=== PATIENT | female | born 1940 | race Caucasian/White ===

== ENCOUNTER 2019-02-03 23:23 | Inpatient (IN) ==
[2019-02-04] MEDS ORDERED: NS 1,000 ML IV ONE (02:19)
[2019-02-04] MEDS ORDERED: ZOFRAN IV ONE (02:19)
[2019-02-04] MEDS ORDERED: MORPHINE IV ONE (02:19)
[2019-02-04 02:50] LABS: BASO# 0.02 X1000 (0.0-0.2); BASO% 0.2 % (0.0-0.8); EOS# 0.17 X1000 (0.0-0.7); EOS% 1.9 % (0.0-10.0); HEMATOCRIT 41.1 % (37.0-47.0); HEMOGLOBIN 13.4 g/dL (12.0-16.0); IMM GRAN# 0.02 X1000 (0.0-0.04); IMM GRAN% 0.2 % (0.0-0.5); LYMPH# 2.04 X1000 (1.2-3.4); LYMPH% 22.3 % (20.5-51.1); MCH 29.2 PG (27-31); MCHC 32.6 g/dL (33-37); MCV 89.5 FL (81-99); MONO# 0.82 X1000 (0.11-0.59); NEUT# 6.09 X1000 (1.4-6.5); NEUT% 66.4 % (42.2-75.2); PLT 224 X1000 (130-400); RBC 4.59 XMIL (4.2-5.4); RDW 14.7 % (11.5-14.5); WBC 9.16 X1000 (4.8-10.8)
[2019-02-04 03:16] LABS: URINE SOURCE CLEAN CATCH
[2019-02-04 03:18] LABS: BILIRUBIN URINE NEGATIVE (NEGATIVE); BLOOD URINE NEGATIVE (NEGATIVE); COLOR YELLOW; GLUCOSE URINE NEGATIVE (NEGATIVE); KETONE URINE 60 mg/dL (NEGATIVE); LEUKOCYTES URINE SMALL (NEGATIVE); NITRITE URINE NEGATIVE (NEGATIVE); PROTEIN URINE TRACE mg/dL (NEGATIVE); SP GRAVITY URINE 1.018; TURBIDITY URINE CLEAR (CLEAR); UR EPITHELIAL CELLS <10 /HPF (<10); URINE BACTERIA NEGATIVE /HPF; URINE RBC <10 /HPF (<10); UROBILINOGEN URINE NORMAL (NORMAL)
[2019-02-04 03:23] LABS: AGAP 13; ALB/GLOB RATIO 1.2; ALBUMIN 4.1 g/dL (3.5-5.0); ALKALINE PHOSPHATASE 129 U/L (32-104); BUN 9 mg/dL (8-22); CHLORIDE 106 mmol/L (98-107); COSMO 285; CREATININE 0.9 mg/dL (0.5-0.9); ESTIMATED GFR > 60; GLUCOSE 94 mg/dL (70-104); GOT 31 U/L (10-30); GPT 16 U/L (10-36); LIPASE 43 U/L (13-60); POTASSIUM 3.9 mmol/L (3.5-5.1); SODIUM 144 mmol/L (136-145); TCO2 25 mmol/L (25-35); TOTAL BILIRUBIN 0.62 mg/dL (0.20-1.00); TOTAL PROTEIN 7.4 g/dL (6.3-8.3)
--- NOTE | 2019-02-04 04:59 | PROVIDER DOCUMENTATION ---
HPI-General Adult - General Chief Complaint: Constipation Stated Complaint: RIGHT SIDE PAIN/COMPACTED Time Seen by Provider: 02/04/19 02:15 Source: patient, family Allergies/Adverse Reactions: Patient Allergies Allergy/AdvReac Type Severity Reaction Status Date / Time codeine [Codeine] Allergy Unknown VOMITING Verified 01/16/19 11:52 Home Medications: Home Medication List Medication Instructions Recorded Confirmed Last Taken Type Lansoprazole 30 mg PO DAILY 06/01/13 12/17/18 12/15/18 History Levothyroxine [Synthroid] 100 microgm PO DAILY 06/01/13 12/17/18 12/16/18 21:00 History Loratadine [Claritin] 10 mg PO DAILY 07/07/16 12/17/18 12/17/18 07:00 History Cholecalciferol (Vitamin D3) 1,000 unit PO DAILY 12/16/18 12/17/18 12/15/18 History [Vitamin D3] Hydrocodone/Acetaminophen [[place] 1 ea PO PRN PRN 12/16/18 12/17/18 12/15/18 History 7.5-325 Tablet] Losartan Potassium 50 mg PO DAILY 12/16/18 12/17/18 12/15/18 History Magnesium 250 mg PO DAILY 12/16/18 12/17/18 12/15/18 History Rosuvastatin Calcium 10 mg PO DAILY 12/16/18 12/17/18 12/17/18 07:00 History Oxycodone I.r. [Oxy Ir] 5 mg PO Q4-6H PRN PRN #40 cap 12/17/18 Unknown Rx - History of Present Illness -Gen Adult Nature of Presenting Problems: 78 y/o F presents to the ED complaining of abdominal pain and a concern about constipation. States she has been having some diffuse abdominal cramping and distention intermittently for several weeks and was scheduled for a colonoscopy this AM with Dr. Pina. States she was doing her bowel prep last night and has this continued she began to have increased abdominal pain and felt that perhaps the prep was not working as she was only passing watery stool. no nausea no feve r. Review of Systems - Adult - REVIEW OF SYSTEMS - ADULT Constitutional: reports: no symptoms reported Eyes: reports: no symptoms reported Ears, Nose, Mouth & Throat: reports: no symptoms reported Cardiovascular: reports: no symptoms reported Respiratory: reports: no symptoms reported Gastrointestinal: reports: abdominal pain Genitourinary: reports: no symptoms reported Musculoskeletal: reports: no symptoms reported Integumentary: reports: no symptoms reported Neurological: reports: no symptoms reported Psychiatric: reports: no symptoms reported Endocrine: reports: no symptoms reported Hematologic/Lymphatic: reports: no symptoms reported Allergic/Immunologic: reports: no symptoms reported All Other Systems: Reviewed and Negative Past History - Adult - PAST MEDICAL HISTORY-ADULT Review of Records: reports: Old Records Reviewed, Nursing Assessment Review, Medications Reviewed, Social history reviewed & non-contributory. Major Childhood Illnesses: reports: denies history Cardiovascular: reports: denies history Respiratory: reports: COPD Gastrointestinal: reports: denies history Obstetrical/Gynecological: reports: denies history Genitourinary: reports: denies history Musculoskeletal: reports: denies history Neurological: reports: denies history Psychiatric: reports: denies history Endocrine/Immune: reports: thyroid disorder Other Conditions: reports: denies history - PRIOR SURGERIES/PROCEDURES Surgical/Procedure History: reports: reviewed, not pertinent - IMMUNIZATION STATUS Childhood Immunizations: See Nurse Assessment Flu Vaccine: See Nurse Assessment - FAMILY HISTORY Family History: reviewed, not pertinent Physical Exam-General - PHYSICAL EXAM-ADULT Initial Vital Signs Reviewed: Yes - CONSTITUTIONAL General Appearance: appears well, alert, no apparent distress - EYES Eyes: PERRL/EOMI - HEAD, EARS, NOSE, MOUTH & THROAT HENMT: normocephalic/atraumatic, moist mucous membranes, normal ENT inspection - NECK Neck: non-tender, full range of motion, supple - RESPIRATORY Respiratory: chest non-tender, lungs clear, normal breath sounds - CARDIOVASCULAR Cardiovascular: normal peripheral pulses, regular rate, rhythm, no edema - GASTROINTESTINAL (ABDOMEN) Abdominal Exam: soft, tenderness (moderate LUQ and pertiumbilical ttp) - MUSCULOSKELETAL Back Exam: normal inspection, no CVA tenderness, no vertebral tenderness Extremity: normal range of motion, non-tender - SKIN Integumentary: normal color, normal turgor, warm/dry - NEUROLOGIC Neurologic: grossly normal, no motor/sensory deficits - PSYCHIATRIC Psych/Mental Status: normal mood/affect, normal thought content, normal thought process, oriented x 3 Progress - PLAN OF CARE/RESULTS Progress/Plan/Lab Results: Vital Signs - 8 hr 02/03/19 23:28 02/04/19 03:07 Temperature 98.0 F 97.8 F Pulse Rate 91 H 95 H Respiratory Rate 18 16 Blood Pressure 160/87 160/70 O2 Sat by Pulse Oximetry 98 97 Laboratory Results - last 24 hr 02/04/19 02/04/19 02/04/19 02: 02:29 03:08 WBC 9.16 RBC 4.59 Hgb 13.4 Hct 41.1 MCV 89.5 MCH 29.2 MCHC 32.6 L RDW Std Deviation 14.7 H Plt Count 224 MPV 12.0 H Immature Gran % (Auto) 0.2 Neut % (Auto) 66.4 Lymph % (Auto) 22.3 [place] % (Auto) 9.0 Eos % (Auto) 1.9 Baso % (Auto) 0.2 Immature Gran # (Auto) 0.02 Neut # (Auto) 6.09 Lymph # (Auto) 2.04 [place] # (Auto) 0.82 H Eos # (Auto) 0.17 Baso # (Auto) 0.02 Sodium 144 Potassium 3.9 Chloride 106 Carbon Dioxide 25 Anion Gap 13 BUN 9 Creatinine 0.9 Estimated GFR/1.73 m2 > 60 BUN/Creatinine Ratio 10 Glucose 94 Calculated Osmolality 285 Calcium 10.0 Total Bilirubin 0.62 AST 31 H ALT 16 Alkaline Phosphatase 129 H Total Protein 7.4 Albumin 4.1 Globulin 3.3 Albumin/Globulin Ratio 1.2 Lipase 43 Urine Source CLEAN CATCH Urine Color YELLOW Urine Turbidity CLEAR Urine pH 6.0 Ur Specific [place] 1.018 Urine Protein TRACE A Ur Glucose (Stick) NEGATIVE Ur Ketones (Stick) 60 A Urine Blood NEGATIVE Urine Nitrite NEGATIVE Urine Bilirubin NEGATIVE Urobilinogen Dipstick NORMAL Urine Leukocytes SMALL A Urine WBC (Auto) 10-20 A Urine RBC (Auto) <10 U Epithel Cells (Auto) <10 Urine Bacteria (Auto) NEGATIVE Orders Category Date Time Status IV Insertion ORDERED Care 02/04/19 02:[address] ABD/PELVIS W/IV CONT ONLY [CT] Stat Exams 02/04/19 02:20 Taken CBC WITH DIFF [HEME] Stat Lab 02/04/19 02:29 Completed COMPREHENSIVE METABOLIC PANEL [CHEM] Stat Lab 02/04/19 02:29 Completed LIPASE [CHEM] Stat Lab 02/04/19 02:29 Completed URINALYSIS W/POSS RFLX CULT [URINALYSIS] Stat Lab 02/04/19 03:08 Completed URINE CULTURE [RM] Routine Lab 02/04/19 03:27 Received 0.9% Sodium Chloride Inj [Ns] 1,000 ml Med 02/04/19 02:19 Discontinued IV 999 mls/hr Morphine Med 02/04/19 02:19 Discontinued 4 mg IV NOW ONE Ondansetron [Zofran] Med 02/04/19 02:19 Discontinued 4 mg IV NOW ONE abdominal pain will further evaluate for causes including but not limited to obstruction, colitis, gastitis, pancreatitis, appendicitis, uti Result Diagrams: 02/04/19 02:29 02/04/19 02:29 - REASSESSMENT Reassessment #1 Status: improving (pain improved CT consistent with acute appendicitis and PNA. Discussed case with Dr. Acosta, Surgeon training professional, who asks that pt be treate with zosyn and admitted to the hospitalist and he will see pt in the ED. Discussed case with Dr. Cheung, hospitalist who will see and admit pt.) - CT/MRI 1 CT Study: Abdomen, Pelvis Impression: Abnormal (per radiologist read, acute appendicitis with large appendicolith, no perforation or abscess, small area of infiltrate in right lung base) Departure - Departure Date of Disposition Decision: 02/04/19 Time of Disposition Decision: 05:14 DIAGNOSIS: Appendicitis Qualifiers: Appendicitis type: acute appendicitis Acute appendicitis type: unspecified acute appendicitis type Qualified Code(s): K35.80 - Unspecified acute appendicitis Pneumonia Qualifiers: Pneumonia type: due to unspecified organism Laterality: right Lung location: lower lobe of lung Qualified Code(s): J18.1 - Lobar pneumonia, unspecified organism Disposition: ADMITTED INPATIENT 09 Certified Medical Emergency: Emergent Condition: Good Referrals and Follow-Ups: Lai Mishra MD [Primary Care Provider] - - Critical Care Note This patient required my direct & personal management of CC.: No Attestation - Physician/ DORA Attestation Patient care was provided by Advanced Practice Provider:: No The physician spent face to face time with patient:: Yes Advanced Practice Provider documentation review:: Supervising physician onsite and consulted in the evaluation and care of this patient. The physician did have a face to face encounter with the patient.
[2019-02-04] MEDS ORDERED: ZOSYN 4.5 GM in NS 100 ML IV ONE (05:08)
[2019-02-04] MEDS ORDERED: ZOFRAN IV PRN (05:42)
[2019-02-04] MEDS: ZITHROMAX 500 MG/NS 500 MG/250 ML IVPB IV SCH ×3 (05:45→08:13)
[2019-02-04] MEDS: NS 1,000 ML IV SCH ×2 (05:45→08:01)
--- NOTE | 2019-02-04 06:55 | HISTORY AND PHYSICAL ---
CHIEF COMPLAINT: Abdominal pain. HISTORY OF PRESENT ILLNESS: 78-year-old female who had seen Dr. Gillette outpatient. He thought she was constipated, was giving her a prep and was going to do a colonoscopy I believe tomorrow. As she started drinking the prep, she had increasing abdominal pain and came into the emergency room. A CT scan was obtained which showed acute appendicitis with a large appendicolith, no perforation or abscess and a small area of infiltrate in the right lung base. She will be admitted for further evaluation and treatment. PAST MEDICAL HISTORY: 1. Osteoporosis. 2. Hypothyroidism. 3. Combined variable immunoglobulin deficiency, takes IVIG every 6 weeks. 4. Hypertension. 5. Hyperlipidemia. PREVIOUS SURGICAL HISTORY: Right rotator cuff surgery on December 17. SOCIAL HISTORY: Lives with . No tobacco, alcohol or illicit drugs. FAMILY HISTORY: Father from complications of lung cancer. Mother had Alzheimer's dementia. HOME MEDICATIONS: A list of home medications has not been reconciled. I know that she takes Synthroid, I am unaware of what dose. Order is placed for nursing reconciliation of medications. These can be restarted when appropriate. ALLERGIES: Codeine. REVIEW OF SYSTEMS: Fourteen point review of systems conducted with the patient. She has abdominal pain, nausea but no vomiting. Denies any fever, chills, diarrhea, cough, shortness of breath. Other pertinent positives on admission are listed above in the HPI. All other systems reviewed and found to be negative. PHYSICAL EXAMINATION: VITAL SIGNS: Temp 97.8, pulse 95, respirations 16, blood pressure 160/70, oxygen saturation 97% on room air. GENERAL: Pleasant 78-year-old female sitting in a recliner in specialty care in the ER. She is alert and oriented x3. Answers all questions appropriately, is in no acute distress. HEENT: Head is atraumatic, normocephalic. Pupils are equal, round and react to light. Extraocular eye movement intact. Sclerae anicteric. Conjunctivae pink. Oral mucosa is moist. NECK: Supple. No JVD. No thyromegaly. Trachea is midline. No cervical lymphadenopathy. CARDIAC: S1, S2 appreciated. No murmurs, gallops, rubs. LUNGS: Clear to auscultation bilaterally. No rhonchi, wheezes, rales. Symmetric rise and fall of respirations. ABDOMEN: Soft mild area of distention just below the epigastric area, right lower quadrant area pain and rebound tenderness with guarding. Bowel sounds present all 4 quadrants, hyperactive. No pulsatile mass. EXTREMITIES: No cyanosis, clubbing or edema. 2+ pedal pulses. GENITOURINARY: No bladder distention. Patient voids otherwise. NEUROLOGICAL: Alert and oriented x3. No focal motor deficits. Otherwise nonfocal examination. DIAGNOSTIC DATA: See CT report in HPI. LABORATORY DATA: CBC and CMP are within normal limits. Urine unremarkable. ASSESSMENT AND PLAN: 1. Acute appendicitis. Patient was placed on Zosyn. Dr Nam will consult. The patient will be NPO. 2. Questionable right lower lobe pneumonia. This could be an area of atelectasis related to shallow breathing from her abdominal pain. However, we will treat with Zithromax and Zosyn. Blood cultures will be obtained. 3. Hypertension. We will continue home medications once reconciled. 4. Hypothyroidism. Continue Synthroid. Check TSH. 5. Hyperlipidemia. Continue statin once reconciled. Further recommendations per patient's clinical course. Dictated by LIANG Ortega for Troy Cheung MD I have performed a face to face diagnostic evaluation. Labs/ Xrays reviewed. Exam- Chest- clear, CV- soft, Abd- RLQ tenderness. A/P- Acute appendicitis; Pneumonia- Admit, IV ABX, surgery consult. Dr. Cheung cc: LIANG Ortega MD Micah A. Howard, MD Manish Arora, MD [facility]ERNON HOSPITALChristin
--- NOTE | 2019-02-04 07:37 | GENERAL SURGERY CONSULTATION ---
DATE: 02/04/2019 REASON FOR CONSULTATION: Consult concerning appendicitis. REQUESTING PHYSICIAN: Emergency department. HISTORY OF PRESENT ILLNESS: A 78-year-old female who was undergoing a bowel prep for colonoscopy, presenting with abdominal pain, mostly in the right lower quadrant. She has never had pain like this before. It was increasing in intensity. She came to the emergency department and had a CT scan that showed possibility of appendicitis. She is still having some of the abdominal discomfort. I was asked to weigh an opinion. PAST MEDICAL HISTORY: Includes history of hypertension, history of thyroid disease, history of hiatal hernia. PAST SURGICAL HISTORY: None. SOCIAL HISTORY: Denies smoking. ALLERGIES: Codeine. HOME MEDICATIONS: Include Synthroid, Claritin, vitamin D, [place], magnesium, a statin. FAMILY HISTORY: Reviewed with the patient and noncontributory. REVIEW OF SYSTEMS: A full 10-point review of systems obtained and negative except as specified in the HPI. PHYSICAL EXAMINATION: Vital Signs: Patient is currently afebrile. Vital signs stable. General: No acute distress, but looks uncomfortable. A 78-year-old female, looks stated age. HEENT: Normocephalic, atraumatic. Pupils equal, round, reactive to light. Mucous membranes moist. Oropharynx benign. Neck: Supple. Trachea midline. Cardiovascular: Regular rate and rhythm. Lungs: Grossly clear. Abdomen: Soft, tender to palpation in the right lower quadrant. Extremities: Moves all extremities. Neurologic: Grossly intact. Skin: No signs of jaundice. Vascular: All extremities perfused. LABORATORY DATA: White blood cell count is normal. Hematocrit 41, platelet count 244,000. Remainder of labs reviewed. CT scan independently reviewed and radiology report reviewed. It looks like she has appendicolith, but no signs of perforation, and possible infiltrate in the right lung base. ASSESSMENT AND PLAN: A 78-year-old with possible appendicitis. 1. Possible appendicitis: At this time, we will admit her to the hospitalist service. We will keep her nothing by mouth. We will put her on intravenous antibiotics. We will plan on surgical intervention today. The risks, benefits, and alternatives were discussed. Risks including, but not limited to, bleeding, infection, risk of anesthesia, risk of injury to other organs, risk of staple line breakdown discussed. Again, we will schedule for today. 2. Multiple medical comorbidities to be managed by the hospitalist. cc: Rudy Acosta MD
--- NOTE | 2019-02-04 08:08 | Diag Imaging Result Doc PS360 ---
EXAM: CT ABD/PELVIS W/IV CONT ONLY 02/04/2019 HISTORY: colitis TECHNIQUE: This exam was performed using automated exposure control, adjustment of mA or kV according to patient size, and/or use of iterative reconstruction technique. COMMENT: The current study is compared with the previous examination of 01/22/2012. There is patchy groundglass and tree-in-bud opacity present in the right lower lobe. There may be some small cavitation present laterally. These findings were not present at the time the previous study. There is some fibrosis present in the medial portion of the lingula and right middle lobe which were present at the time the previous study. Some platelike atelectasis is present in both lower lobes. There is a large hiatal hernia. There are atherosclerotic calcifications in the abdominal aorta. The mesenteric and renal arteries are patent and there is no evidence of aneurysm. There are granulomata in the spleen. The liver is hypodense suggesting fatty change. The adrenal glands are not enlarged. The pancreas is stable in appearance. There is a small calcification in the pancreatic tail which was present at the time the previous study and may be indicative of chronic pancreatitis. The adrenal glands are stable in appearance. There is fluid in the colon. There is no evidence of mucosal thickening. The small bowel is not distended. There is no evidence of significant adenopathy. Pelvis: There is a large appendicolith. The appendix is distended and there is edema in the periappendiceal fat. There is no discrete abscess. These findings were not present at the time the previous study. There is diverticulosis in the sigmoid colon without evidence of diverticulitis. There is fluid throughout the colon including the rectum. No pelvic masses are present. There is no evidence of free fluid. There are changes in the right femoral head consistent with ischemic necrosis. This was also present at the time the previous study. There are degenerative changes in the lumbar spine. IMPRESSION: 1. Nonspecific opacities in the right lower lobe which may be related to aspiration pneumonia given the large hiatal hernia. 2. Acute appendicitis with appendicolith. 3. Hepatic steatosis. Chronic pancreatitis changes. 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 Electronically signed by Francesco Cortez 02/04/2019 8:05 AM
[2019-02-04] MEDS ORDERED: ZOSYN 3.375 GM in NS 50 ML IV SCH (11:45)
[2019-02-04] MEDS ORDERED: ROBINUL ONE (11:51)
[2019-02-04] MEDS ORDERED: XYLOCAINE-MPF 2% ONE ×2 (11:51→15:11)
[2019-02-04] MEDS ORDERED: FENTANYL ONE (11:53)
[2019-02-04] MEDS ORDERED: ZEMURON ONE (11:53)
[2019-02-04] MEDS ORDERED: QUELICIN (DOSE) ONE (11:53)
[2019-02-04] MEDS ORDERED: DIPRIVAN 1% ONE (11:53)
[2019-02-04] MEDS ORDERED: SODIUM CHLORIDE 0.9% 10 ML ONE (13:15)
[2019-02-04] MEDS ORDERED: ZOFRAN ONE (14:33)
[2019-02-04] MEDS ORDERED: NEOSTIGMINE ONE (14:35)
[2019-02-04] MEDS ORDERED: LR 1,000 ML ONE (14:36)
[2019-02-04] MEDS ORDERED: MARCAINE 0.25% PF/EPI 1:200,000 ONE (14:36)
[2019-02-04] MEDS ORDERED: NS 1,000 ML ONE (15:13)
[2019-02-04] MEDS: DILAUDID ONE ×3 (15:56→16:06)
[2019-02-04] MEDS ORDERED: ULTRAM PO PRN (16:21)
--- NOTE | 2019-02-04 17:44 | OPERATIVE NOTE ---
PROCEDURE DATE: 02/04/2019 PREOPERATIVE DIAGNOSIS: Appendicitis. POSTOPERATIVE DIAGNOSIS: Appendicitis. PROCEDURE: Laparoscopic appendectomy. SURGEON: Rudy Acosta MD. INSIDE SALES PROFESSIONAL: None. ANESTHESIA: General endotracheal. INTRAOPERATIVE FINDINGS: As dictated. COMPLICATIONS: None at time of dictation. ESTIMATED BLOOD LOSS: 5 mL. SPECIMENS REMOVED: Appendix. BRIEF HISTORY: 78-year-old female presenting with right lower quadrant pain. She had a CT scan that showed appendicitis. It was felt that she would benefit from appendectomy. The risks, benefits, and alternatives were discussed. All questions answered. PROCEDURE: After informed consent was obtained, the patient brought to the operative theatre, transferred to the operating table in supine position. General endotracheal anesthesia was then performed without complication. A formal time-out was then performed confirming patient, date, procedure. All in agreement. At that time attention was given to the abdomen. An infraumbilical incision was made through which using Optiview technique we inserted a 12 mm trocar connected to insufflation. Pneumoperitoneum was achieved. Under direct visualization we placed 2 more trocars, 1 in the right upper quadrant, 1 in the left lower quadrant. Using these, the appendix was identified, it was elevated. There was some adhesions stuck to it from inflammation but we were able to dissect it off. We dissected off the appendix from the surrounding tissue, elevated and made a window in the base of the mesoappendix fired a stapler across the base of the appendix with good results. We then fired a stapler across the mesoappendix with good results. We placed the appendix in the Endo catch and brought out through the infraumbilical incision. We then closed the infraumbilical incision after removing all trocars and disconnecting insufflation. It should be noted that the remainder of the abdomen appeared without pathology. There was no drainage of succus or stool noted at the staple lines. No bleeding. We closed the infraumbilical incision with 0 Vicryl [id number] stitch. We then closed all skin incisions with 4-0 Monocryl. The patient's fascia and skin were very thin. Sterile dressings were applied. Patient tolerated procedure well and was transferred back to recovery room. We need to watch her overnight given her age. cc: Rudy Acosta MD
[2019-02-05] MEDS: NS 1,000 ML IV SCH ×3 (02:01→16:01)
[2019-02-05] MEDS: MORPHINE IV PRN ×2 (02:24→15:58)
[2019-02-05] MEDS: SYNTHROID PO SCH (06:40)
[2019-02-05] MEDS: PROTONIX PO SCH (06:41)
[2019-02-05 07:56] LABS: BASO% 0.2 % (0.0-0.8); EOS% 1.3 % (0.0-10.0); HEMATOCRIT 34.4 % (37.0-47.0); LYMPH% 19.6 % (20.5-51.1); MCH 29.1 PG (27-31); MONO% 8.9 % (1.7-9.3); MPV 12.2 FL (7.4-10.4); PLT 175 X1000 (130-400); RBC 3.78 XMIL (4.2-5.4); RDW 14.7 % (11.5-14.5); WBC 9.19 X1000 (4.8-10.8)
[2019-02-05 07:57] LABS: BASO# 0.02 X1000 (0.0-0.2); EOS# 0.12 X1000 (0.0-0.7); MONO# 0.82 X1000 (0.11-0.59); NEUT# 6.43 X1000 (1.4-6.5)
[2019-02-05 07:59] LABS: AGAP 15; BUN 8 mg/dL (8-22); CALCIUM 9.3 mg/dL (8.8-10.2); CHLORIDE 108 mmol/L (98-107); COSMO 278; CREATININE 0.8 mg/dL (0.5-0.9); ESTIMATED GFR > 60; GLUCOSE 69 mg/dL (70-104); POTASSIUM 3.8 mmol/L (3.5-5.1); SODIUM 141 mmol/L (136-145); TCO2 18 mmol/L (25-35)
[2019-02-05] MEDS: VITAMIN D PO SCH (09:30)
[2019-02-05] MEDS: COZAAR PO SCH (09:30)
[2019-02-05] MEDS: MAG-OX PO SCH (09:30)
[2019-02-05] MEDS: PERIDEX MT SCH ×2 (09:30→22:04)
[2019-02-05] MEDS: CRESTOR PO SCH (09:31)
[2019-02-05] MEDS: CLARITIN PO SCH (09:31)
--- NOTE | 2019-02-05 10:24 | GENERAL SURGERY PROGRESS NOTE ---
DATE: 02/05/2019 SUBJECTIVE: Patient seems to be doing okay. She does have some issues with dysphagia, but this has been longstanding. OBJECTIVE: Vital Signs: The patient is currently afebrile. Her vital signs stable. General: No acute distress. Cardiovascular: Regular rate and rhythm. Lungs: Grossly clear. Abdomen: Soft, appropriately tender. ASSESSMENT AND PLAN: A 78-year-old female status post laparoscopic appendectomy for appendicitis. 1. Laparoscopic appendectomy. At this time, surgically, she is doing okay. From a surgical point of view we could try to advance to a regular diet although she is having dysphagia. Please see below. 2. Dysphagia. At this time, this has been longstanding. Likely we will pursue this evaluation as an outpatient when she sees me back in a week. I think she probably needs an upper gastrointestinal series plus or minus the esophagogastroduodenoscopy. She does have a large hiatal hernia, which may be contributing to this. This may be somewhat obstructing to her. We will need to get upper gastrointestinal series first. 3. Multiple medical comorbidities currently being managed by the hospitalist. 4. From a surgical point of view, I think the patient is healing. I think she can likely be discharged home pending evaluation for pneumonia and outpatient treatment but I think we could do further workup as an outpatient. cc: Rudy Acosta MD
[2019-02-05] MEDS: AUGMENTIN PO SCH ×2 (11:58→22:04)
--- NOTE | 2019-02-05 12:10 | PROGRESS NOTE ---
DATE: 02/05/2019 SUBJECTIVE: This morning Ms. Brown refers to be feeling okay. Still has some issues with her swallowing, which according to her is chronic, but she does feel generally weak and apprehensive to go home. She does not feel strong enough that she would be able to be by herself. OBJECTIVE: Vital signs: Blood pressure is 134/61, pulse of 93, respirations 22, temperature 98.9 degrees. Patient was saturating 93% on room air. General: Ms. Brown is a 78-year-old female. She was in bed. She did not seem to be in any cardiopulmonary distress. Mucosa is pink and moist. Anicteric. Acyanotic. Neck: Supple. Chest: Good air entry bilaterally. No crepitations. No rhonchi. Cardiovascular: Regular rate and rhythm. Abdomen: Soft, minimally distended. There is a Band-Aid over the laparoscopic wounds. Bowel sounds are present, but slightly hypoactive. Extremities: No pedal edema. central nervous system: Patient is awake, alert, and oriented. LABORATORY DATA: Has been reviewed. WBC is 9.19, hemoglobin is 10.0, platelet count of 175,000. Chemistry is also reviewed. Bicarb is 18. Rest of chemistry is unremarkable. Operative report has also been reviewed. A laparoscopic appendectomy was done by Dr. Acosta. ASSESSMENT: 1. Abdominal pain on presentation secondary to acute appendicitis. The patient is status post laparoscopic appendectomy. Today is day 1 postop. She seems to be doing remarkably well. The patient has been evaluated by Surgery, has been started on a diet. 2. Right lower lobe pneumonia concerning for aspiration. The patient is on aspiration precautions and on antibiotics. 3. Hypertension controlled. 4. Hypothyroidism stable on levothyroxine. 5. History of large hiatal hernia noted. The patient will follow up on outpatient base with Surgery. PLAN: In general, Ms Brown seems to be fairly stable. She has been evaluated by Surgery today and from surgery standpoint they think she is okay for discharge. However, Ms. Bronw feels extremely apprehensive. She thinks she is too weak to go home since she will be home by herself and nobody else is their. is working. We will keep her overnight, continue with the IV antibiotics, get physical therapy to continue working with her, and hopefully get her home tomorrow. cc: Mark Crawford MD
[2019-02-05] MEDS: ZOFRAN IV PRN ×2 (15:58→22:08)
[2019-02-05] MEDS: CULTURELLE PO SCH (22:20)
[2019-02-06] MEDS: ZOFRAN IV PRN (03:13)
[2019-02-06] MEDS: SYNTHROID PO SCH (06:24)
[2019-02-06] MEDS: PROTONIX PO SCH (06:24)
[2019-02-06] MEDS: LEVAQUIN PO SCH (09:37)
[2019-02-06] MEDS: CULTURELLE PO SCH ×2 (09:37→23:37)
[2019-02-06] MEDS: MAG-OX PO SCH (09:38)
[2019-02-06] MEDS: VITAMIN D PO SCH (09:39)
[2019-02-06] MEDS: CRESTOR PO SCH (09:39)
[2019-02-06] MEDS: COZAAR PO SCH (09:40)
[2019-02-06] MEDS: CLARITIN PO SCH (09:40)
--- NOTE | 2019-02-06 13:16 | GENERAL SURGERY PROGRESS NOTE ---
DATE: 02/06/2019 SUBJECTIVE: Patient seems to be doing a little bit better, although she is weak and she has been put on antibiotics for her pneumonia. OBJECTIVE: Vital Signs: Patient is currently afebrile. Her vital signs have been stable. General: No acute distress. Cardiovascular: Regular rate and rhythm. Lungs: Grossly clear. Abdomen: Soft. Appropriately tender. ASSESSMENT AND PLAN: A 78-year-old female status post laparoscopic appendectomy. 1. Postoperative state. At this time, surgically, she is doing okay. Defer discharge to the hospitalist. 2. Dysphagia. At this time, would probably recommend workup as an outpatient. 3. Pneumonia to be managed by the hospitalist. cc: Rudy Acosta MD
[2019-02-06] MEDS: PERIDEX MT SCH ×2 (16:34→23:37)
--- NOTE | 2019-02-06 19:01 | PROGRESS NOTE ---
DATE: 02/06/2019 SUBJECTIVE: This morning Ms. Brown refers to be feeling slightly better, but she is not as strong as she would want to be. OBJECTIVE: Vital signs: Blood pressure is 151/65, pulse 94, respirations 18, temperature is 98.7 degrees. General: Ms. Brown is a 78-year-old female. She is in bed. No distress. Mucosa is pink and moist. Anicteric and acyanotic. Neck: Supple. Chest: Clear to auscultation. No crepitations. No rhonchi. Cardiovascular: Regular rate and rhythm. Abdomen: Soft, minimally distended. There are some sterile bandages over the anterior abdominal wall where the laparoscopic wounds are. Central nervous system: Patient is awake, alert, and oriented. LABORATORY DATA: None for today. ASSESSMENT: 1. Abdominal pain on presentation secondary to acute appendicitis. Patient is status post day 2 laparoscopic appendectomy. Surgery is on board. 2. Right lower lobe pneumonia, questionable for aspiration. The patient was on IV antibiotics and has been transitioned to p.o. Augmentin; however, she did not tolerate this so we will switch to p.o. Levaquin. 3. Hypertension, controlled. 4. Hypothyroidism, stable on levothyroxine. 5. History of large hiatal hernia noted. The patient will follow up with surgery on an outpatient basis. PLAN: In general, Ms. Brown continues to improve after her appendix surgery. She does have some pneumonia on antibiotic, was switched to p.o. Augmentin, which she did not tolerate very well with her first dose so that she has been changed to Levaquin. I think she is fairly stable for discharge; however, she feels still weaker so we will get physical therapy consult and get her to walk before we discharge her tomorrow. cc: Mark Crawford MD
[2019-02-07] MEDS: SYNTHROID PO SCH (06:20)
[2019-02-07] MEDS: PROTONIX PO SCH (06:20)
--- NOTE | 2019-02-07 07:49 | Diag Imaging Result Doc PS360 ---
CHEST-PORTABLE - 02/07/2019 INDICATION: dyspnea COMPARISON: 01/16/2019 FINDINGS: Stable small hiatal hernia behind the heart. Stable trace bilateral pleural effusions. Stable linear atelectasis in the left lung base. No infiltrates or edema. Heart size is top normal. IMPRESSION: No change from prior. Electronically signed by Aaron Vargas 02/07/2019 7:47 AM
[2019-02-07 08:01] VITALS: BP 156/79
[2019-02-07] MEDS: CULTURELLE PO SCH (08:48)
[2019-02-07] MEDS: PERIDEX MT SCH (08:48)
[2019-02-07] MEDS: LEVAQUIN PO SCH (08:48)
[2019-02-07] MEDS: CLARITIN PO SCH (08:48)
[2019-02-07] MEDS: MAG-OX PO SCH (08:48)
[2019-02-07] MEDS: VITAMIN D PO SCH (08:49)
[2019-02-07] MEDS: COZAAR PO SCH (08:49)
[2019-02-07] MEDS: CRESTOR PO SCH (08:49)
--- NOTE | 2019-02-08 00:19 | DISCHARGE SUMMARY ---
ADMISSION DATE: 02/04/2019 DISCHARGE DATE: 02/07/2019 DISPOSITION: Home. FOLLOW-UP: 1. Dr. Acosta. 2. Dr. Mishra. CONSULTATION DURING THIS ADMISSION: Surgery was consulted, patient was seen by Dr. Acosta. INVASIVE PROCEDURES DONE DURING THIS ADMISSION: A laparoscopic appendectomy was done by Dr. Acosta on 02/04/2019. IMAGING STUDIES OF SIGNIFICANCE: 1. A CT scan of the abdomen and pelvis showed possible aspiration pneumonia, large hiatal hernia, acute appendicitis, hepatic steatosis. 2. A follow-up chest x-ray this morning shows no change. ADMISSION DIAGNOSES: 1. Acute appendicitis. 2. Right lower lobe pneumonia. 3. Hypertension. 4. Hypothyroidism. 5. Dyslipidemia. DIAGNOSES AT TIME OF DISCHARGE: 1. Abdominal pain on presentation secondary to acute appendicitis. The patient is status post laparoscopic appendectomy. 2. Right lower lobe pneumonia, questionable for aspiration. Patient was treated with IV antibiotic and transition to oral Augmentin. 3. Hypertension, controlled. 4. Hypothyroidism. Will continue with levothyroxine. 5. History of large hiatal hernia. The patient will follow up with Surgery on outpatient basis. 6. Hepatic steatosis with chronic pancreatitis changes on CT scan noted. DISCHARGE MEDICATIONS: 1. Levothyroxine 100 mcg p.o. daily. 2. Lansoprazole 20 mg p.o. daily. 3. Loratadine. 4. Crestor 10 mg p.o. daily. 5. Cholecalciferol. 6. Lactobacillus 1 tablet b.i.d. 7. Levaquin 500 p.o. daily. PRESENTING COMPLAINT: Abdominal pain. HISTORY OF PRESENTING COMPLAINT: Ms. Brown is a 78-year-old female who did complain every now and then of constipation, was following Dr. Pina on outpatient basis. Came to the emergency department because of acute abdominal pain. She was evaluated and was found to have acute appendicitis. She was admitted for further medical management. HOSPITAL COURSE: Ms Brown was admitted to the medical floor, was adequately hydrated, was started on IV antibiotics, and Surgery was consulted, Dr. Acosta saw the patient and decision was made to do a laparoscopic cholecystectomy, which was successfully done. The patient tolerated procedure well. Postoperatively, Ms. Brown continues to feel well. She was started on low-salt diet, she tolerated it well. She also had multiple bowel movements. No more abdominal pain. She did have some pneumonia on the CT scan, so she was started on IV antibiotics and this has been switched to p.o. Augmentin, and she seems to be tolerating that very well. Ms. Brown refers to be feeling a whole lot better today. Her vitals have all been reviewed, they are unremarkable. We think she is stable for discharge. All the discharge instructions have been discussed with her. Specifically, she has been advised to follow up with Dr. Acosta for post surgery evaluation within a week or 2. TIME SPENT: For discharge is 36 minutes. cc: Mark Crawford MD
== END 2019-02-07 13:12 | disposition home or self-care (01) | DRG 341 ==
LOC: ED 23:23 → EDIPHOLD 02-04 07:18 → SUATTDRO 02-04 07:18 → 4N 02-04 13:52
PROVIDERS: ATTEND Internal Medicine
CPT/HCPCS: 71010; 71045; 74177; 80048; 80053; 81001; 82948; 83690; 84443; 85025; 87040; 87088; 88304; 94760; 94799; 96361; 96365; 96366; 96375; 99285; A9270; J0330; J0456; J1170; J2270; J2405; J2543; J3010; J7030; J7120; Q9967; S0020; XXXXX

== ENCOUNTER 2019-03-19 05:06 | Observation (INO) ==
[2019-03-11 14:25] LABS: BASO# 0.03 X1000 (0.0-0.2); BASO% 0.5 % (0.0-0.8); EOS# 0.13 X1000 (0.0-0.7); HEMATOCRIT 39.7 % (37.0-47.0); HEMOGLOBIN 12.9 g/dL (12.0-16.0); IMM GRAN# 0.02 X1000 (0.0-0.04); IMM GRAN% 0.3 % (0.0-0.5); LYMPH% 41.6 % (20.5-51.1); MCH 29.3 PG (27-31); MCHC 32.5 g/dL (33-37); MCV 90.2 FL (81-99); MONO# 0.46 X1000 (0.11-0.59); MONO% 7.1 % (1.7-9.3); MPV 12.2 FL (7.4-10.4); NEUT# 3.15 X1000 (1.4-6.5); NEUT% 48.5 % (42.2-75.2); PLT 194 X1000 (130-400); RDW 16.1 % (11.5-14.5); WBC 6.49 X1000 (4.8-10.8)
[2019-03-11 15:25] LABS: CALCIUM 10.3 mg/dL (8.8-10.2); CREATININE 1.1 mg/dL (0.5-0.9); POTASSIUM 4.3 mmol/L (3.5-5.1)
[2019-03-19] MEDS ORDERED: KEFZOL 1 GM/D5W 2 GM/100 ML IVPB ONE (05:34)
[2019-03-19] MEDS ORDERED: PEPCID ONE (05:34)
[2019-03-19] MEDS ORDERED: LR 1,000 ML ONE ×2 (05:34→06:32)
[2019-03-19] MEDS ORDERED: REGLAN ONE (05:34)
[2019-03-19] MEDS ORDERED: DIPRIVAN 1% ONE (05:43)
[2019-03-19] MEDS ORDERED: FENTANYL ONE (05:43)
[2019-03-19] MEDS ORDERED: QUELICIN (DOSE) ONE (05:43)
[2019-03-19] MEDS ORDERED: XYLOCAINE-MPF 2% ONE (05:43)
[2019-03-19] MEDS ORDERED: SENSORCAINE 0.25%/EPI 1:200,000 ONE (06:32)
[2019-03-19] MEDS ORDERED: DILAUDID ONE (07:27)
[2019-03-19] MEDS ORDERED: DECADRON ONE (08:42)
[2019-03-19] MEDS ORDERED: STERILE WATER INJ. ONE (08:42)
[2019-03-19] MEDS ORDERED: NORCURON ONE (08:42)
[2019-03-19] MEDS ORDERED: ZOFRAN ONE (08:42)
[2019-03-19] MEDS ORDERED: OFIRMEV 1000 MG/ISOTONIC SOLN 1,000 MG/100 ML BOTTLE ONE (08:42)
[2019-03-19] MEDS ORDERED: EPHEDRINE ONE (08:44)
[2019-03-19] MEDS ORDERED: NEOSTIGMINE ONE (10:47)
[2019-03-19] MEDS ORDERED: ROBINUL ONE (10:47)
[2019-03-19] MEDS ORDERED: ZOFRAN IV PRN (11:15)
[2019-03-19] MEDS: LR 1,000 ML IV SCH (12:29)
[2019-03-19] MEDS: ULTRAM PO PRN ×2 (12:29→18:30)
--- NOTE | 2019-03-19 15:01 | OPERATIVE NOTE ---
PROCEDURE DATE: 03/19/2019 PREOPERATIVE DIAGNOSES: 1. Incarcerated paraesophageal hiatal hernia. 2. Gastroesophageal reflux disease. 3. Mild dysphagia. POSTOPERATIVE DIAGNOSES: 1. Incarcerated paraesophageal hiatal hernia. 2. Gastroesophageal reflux disease. 3. Mild dysphagia. PROCEDURES PERFORMED: 1. Laparoscopic robot assisted repair of incarcerated paraesophageal hernia. 2. Toupee fundoplication (posterior 270 fundoplication). 3. Gastropexy. SURGEON: Rudy Acosta MD. GUARD IMMIGRATION: None. ANESTHESIA: General endotracheal. INTRAOPERATIVE FINDINGS: As dictated. COMPLICATIONS: None at time of this dictation. ESTIMATED BLOOD LOSS: 30 mL. SPECIMENS REMOVED: None. BRIEF HISTORY: A 78-year-old female, known to me, had a large hiatal hernia that is causing her issues with reflux and dysphagia. It was felt that she would benefit from a fundoplication. We did do a swallow study which showed a large hiatal hernia with paraesophageal hernia which was causing issues with clearance from her esophagus. It was felt that she would benefit from a hiatal hernia repair. We decided to do a toupee posterior fundoplication secondary to dysphagia, but she also had reflux. We elected to do a gastropexy given the size of her hiatal hernia. We discussed the risks, benefits, alternatives and documented in the chart. Risks including, but not limited to bleeding, infection, risk of injury of the esophagus and the stomach, risk of recurrence, risk of complications from pneumothorax, injury to surrounding organs discussed. All questions answered. DESCRIPTION OF PROCEDURE: After informed consent was obtained, the patient brought to the operative theatre, and transferred to the operating table and placed in the supine position. General endotracheal anesthesia was then performed without complication. A formal time-out was then performed confirming patient, date, and procedure. All in agreement. At that time, attention given to the abdomen. We placed our first trocar using Optiview technique inferior and to the left of the umbilicus. We placed a 12 mm trocar connected insufflation pneumoperitoneum was achieved. We then placed a trocar in the subxiphoid for the liver retractor, and retracted the liver. We then placed 2 trocars on either side for the robot. We placed two on the most lateral aspect anterior axillary line with 8 mm and an teaching assistant port between that, and the initial trocar on the right side, and an additional 8 mm trocar between the lateral one on the left side and the camera port. We then docked the Robot. I turned my attention to the robot console. She did have significant disease, but she had a large hiatal hernia with at least a 3rd of her stomach up in her hiatus. We slowly reduced it, and it was incarcerated. We took down the greater curvature with the vessel sealer first going all the way to the hiatus. We ligated the short gastrics. We freed up with all the surrounding tissue until the stomach came down into the abdomen. It came down freely without any tension. We then turned our attention to the lesser curvature. It looked like she had a replaced left hepatic artery so we started on the lesser curvature higher than this. We took down all the adhesions that go up to the crura on that side also. Once we freed up the crura, we made our window posteriorly. We were able to see both crura. We then closed it with a running V-Loc suture without tension. The esophageal dilator was able to pass through without difficulty. We then formed our fundoplication. We brought the fundus around posteriorly, and confirmed it was not twisted by doing a shoe shine technique. We then did a posterior 270 degree wrap with a toupee approach. We secured it on both sides with 2 interrupted stitches so a total of 4 stitches, and then secured it to the crura posteriorly. We then elected to do a gastropexy, brought the stomach up to the abdominal wall. We placed it 2 fingerbreadths below the costal margin, and 2 fingerbreadths lateral to the xiphoid. This was a point where we would place a normal G-tube, but we elected to just do a gastropexy. We placed 3 interrupted silk sutures and sutured the stomach up to the abdominal wall. We did this to add another buried recurrence. We then closed the infraumbilical incision with 0 Vicryl on a BarkBox device. We removed the robot and disconnected insufflation. All skin incisions closed with 4-0 Monocryl. The patient tolerated the procedure well. cc: Rudy Acosta MD
[2019-03-19 17:46] LABS: URINE SOURCE CLEAN CATCH
[2019-03-19 17:52] LABS: BILIRUBIN URINE NEGATIVE (NEGATIVE); BLOOD URINE TRACE (NEGATIVE); COLOR YELLOW; GLUCOSE URINE 70 mg/dL (NEGATIVE); KETONE URINE TRACE mg/dL (NEGATIVE); LEUKOCYTES URINE NEGATIVE (NEGATIVE); NITRITE URINE NEGATIVE (NEGATIVE); PH URINE 6.5; PROTEIN URINE NEGATIVE (NEGATIVE); SP GRAVITY URINE 1.016; TURBIDITY URINE CLEAR (CLEAR); UR EPITHELIAL CELLS <10 /HPF (<10); URINE BACTERIA NEGATIVE /HPF; URINE RBC <10 /HPF (<10); URINE WBC <10 /HPF (<10); UROBILINOGEN URINE NORMAL (NORMAL)
[2019-03-19] MEDS: PERIDEX MT SCH (20:06)
[2019-03-20] MEDS: ULTRAM PO PRN ×3 (00:37→14:58)
[2019-03-20] MEDS: LR 1,000 ML IV SCH ×2 (03:38→05:55)
[2019-03-20] MEDS: SYNTHROID PO SCH ×2 (05:55→08:00)
[2019-03-20] MEDS: PRILOSEC PO SCH ×2 (05:55→08:00)
[2019-03-20] MEDS: PERIDEX MT SCH (08:18)
[2019-03-20] MEDS ORDERED: COZAAR PO SCH (09:00)
[2019-03-20] MEDS ORDERED: CRESTOR PO SCH (09:00)
[2019-03-20] MEDS ORDERED: MAGNESIUM GLUCONATE PO SCH (09:00)
--- NOTE | 2019-03-20 15:06 | GENERAL SURGERY PROGRESS NOTE ---
DATE: 03/20/2019 SUBJECTIVE: Patient seems to be swallowing okay, actually improved from before her operation. OBJECTIVE: Vital Signs: Patient is currently afebrile. Her vital signs are stable. General: No acute distress. Cardiovascular: Regular rate and rhythm. Lungs: Grossly clear. Abdomen: Soft, appropriately tender. ASSESSMENT AND PLAN: A 78-year-old female status post hiatal hernia repair with toupet fundoplication and gastropexy. 1. Postoperative state at this time, we will advance to a full liquid diet. 2. If she seems to do okay around lunch, we will discharge her home. cc: Rudy Acosta MD
[2019-03-20 15:57] VITALS: BP 139/65
== END 2019-03-20 16:31 | disposition home or self-care (01) ==
LOC: 4N 05:06 → OPS 05:06 → PAT 05:06
PROVIDERS: ADMIT Surgery; ATTEND Surgery
CPT/HCPCS: 80048; 81001; 85025; 94761; 94799; A9270; J0131; J0330; J0690; J1100; J1170; J2405; J3010; J7120; S2900

== ENCOUNTER 2019-04-12 11:02 | Inpatient (IN) ==
[2019-04-12 11:39] LABS: BASO# 0.02 X1000 (0.0-0.2); BASO% 0.2 % (0.0-0.8); EOS# 0.01 X1000 (0.0-0.7); EOS% 0.1 % (0.0-10.0); HEMATOCRIT 42.2 % (37.0-47.0); HEMOGLOBIN 13.8 g/dL (12.0-16.0); IMM GRAN# 0.02 X1000 (0.0-0.04); IMM GRAN% 0.2 % (0.0-0.5); LYMPH# 1.63 X1000 (1.2-3.4); LYMPH% 15.5 % (20.5-51.1); MCH 29.2 PG (27-31); MCHC 32.7 g/dL (33-37); MCV 89.2 FL (81-99); MONO# 1.17 X1000 (0.11-0.59); MONO% 11.1 % (1.7-9.3); MPV 12.3 FL (7.4-10.4); NEUT# 7.65 X1000 (1.4-6.5); NEUT% 72.9 % (42.2-75.2); PLT 206 X1000 (130-400); RBC 4.73 XMIL (4.2-5.4); RDW 16.8 % (11.5-14.5)
--- NOTE | 2019-04-12 11:49 | Diag Imaging Result Doc PS360 ---
EXAM: CHEST-2 VIEWS HISTORY: pleuritic chest pain, dyspnea TECHNIQUE: Chest two views COMPARISON: 02/07/2019 and 01/16/2019 FINDINGS: There are small bilateral pleural effusions with basilar atelectasis. The heart is mildly enlarged. No pulmonary edema. The lungs are hyperexpanded. Midthoracic compression fracture is unchanged. IMPRESSION: 1.Emphysema 2.Cardiomegaly with small pleural effusions Electronically signed by Renan Petersen 04/12/2019 11:47 AM
[2019-04-12 11:55] LABS: ALB/GLOB RATIO 1.8; ALBUMIN 4.2 g/dL (3.5-5.0); CALCIUM 9.4 mg/dL (8.8-10.2); POTASSIUM 4.6 mmol/L (3.5-5.1); TOTAL BILIRUBIN 1.33 mg/dL (0.20-1.00); TOTAL PROTEIN 6.5 g/dL (6.3-8.3)
--- NOTE | 2019-04-12 14:39 | Diag Imaging Result Doc PS360 ---
EXAM: CT ANGIOGRM PULMONARY ARTERIES HISTORY: recent surgery, dyspnea-pleuritic CP, elev dimer TECHNIQUE: CT chest with intravenous contrast. Pulmonary arterial protocol with MIP images. COMPARISON: 10/14/2018 FINDINGS: Small left pleural effusion measuring 2.0 cm posteriorly and inferiorly in the midline. Trace right pleural fluid. Small pericardial effusion measuring 9 mm in greatest thickness. No thoracic aortic aneurysm or dissection. Normal opacification of the pulmonary arteries and their major branches. There is pulmonary edema. Mildly prominent mediastinal nodes. There is basilar atelectasis. No consolidation. IMPRESSION: 1.No pulmonary emboli 2.Small pericardial and pleural effusions with pulmonary edema 3.Basilar atelectasis. Questionable small underlying infiltrate in the left lower lobe. This exam was performed using automated exposure control, adjustment of mA or kV according to patient size, and/or use of iterative reconstruction technique. Electronically signed by Renan Petersen 04/12/2019 2:37 PM
[2019-04-12] MEDS ORDERED: TORADOL IV ONE (14:52)
--- NOTE | 2019-04-12 15:04 | PROVIDER DOCUMENTATION ---
This chart was entered by Aicha Mcgowan Scribe, acting as scribe for Bo Galicia MD. HPI-Respiratory General - General Chief Complaint: Shortness of Breath Stated Complaint: SOB Time Seen by Provider: 04/12/19 11:15 Source: patient, old records Allergies/Adverse Reactions: Patient Allergies Allergy/AdvReac Type Severity Reaction Status Date / Time codeine [Codeine] AdvReac Unknown VOMITING Verified 04/12/19 11:14 Home Medications: Home Medication List Medication Instructions Recorded Confirmed Last Taken Type Lansoprazole 30 mg PO DAILY 06/01/13 03/11/19 03/18/19 07:00 History Levothyroxine [Synthroid] 100 microgm PO DAILY 06/01/13 03/19/19 03/18/19 20:30 History Losartan Potassium 50 mg PO DAILY 12/16/18 03/11/19 03/18/19 07:00 History Magnesium 250 mg PO DAILY 12/16/18 03/11/19 03/18/19 07:00 History Rosuvastatin Calcium 10 mg PO DAILY 12/16/18 03/11/19 03/18/19 07:00 History Tramadol [Ultram] 50 mg PO Q4-6H PRN PRN #30 tab 03/20/19 Unknown Rx - History of Present Illness-Resp Nature of Presenting Problem: 78 y/o female presents to ED with cc of SOB onset 2 days ago. Pt reports her symptoms were better yesterday, but returned again this morning. Pt states she e xperiences chest pain with inspiration. Pt reports she had an appendectomy on 03/07/19 and hernia repair on 03/19/19. Pt denies calf pain or leg swelling. Pt states she hasn't been able to eat well since these surgeries. Pt is alert and oriented. Quality of Pain: reports: sharp Severity in ED: reports: moderate Onset/Duration: reports: 2 days ago Timing: reports: still present, intermittent Context: reports: other Exposure: reports: unknown cause Cough Quality/Degree: reports: no cough Episode Frequency: no prior episodes Current Respiratory Medication Therapy: Initiated see nurses note Modifying Factors: worse with: deep breath Associated Symptoms: reports: chest pain/soreness, shortness of breath, short of breath Similar Symptoms Previously?: No Recently seen or treated by another doctor?: No Review of Systems - Adult - REVIEW OF SYSTEMS - ADULT Constitutional: denies: chills, fever Eyes: reports: no symptoms reported Ears, Nose, Mouth & Throat: reports: no symptoms reported Cardiovascular: reports: chest pain. denies: palpitations Respiratory: reports: shortness of breath. denies: cough Gastrointestinal: denies: abdominal pain, diarrhea, nausea, vomiting Genitourinary: reports: no symptoms reported Musculoskeletal: denies: back pain, joint pain Integumentary: reports: no symptoms reported Neurological: denies: dizziness/vertigo, seizure Psychiatric: reports: no symptoms reported Endocrine: reports: no symptoms reported Hematologic/Lymphatic: reports: no symptoms reported Allergic/Immunologic: reports: no symptoms reported All Other Systems: Reviewed and Negative Past History - Adult - PAST MEDICAL HISTORY-ADULT Review of Records: reports: Old Records Reviewed, Nursing Assessment Review, Medications Reviewed Major Childhood Illnesses: reports: denies history Cardiovascular: reports: HTN, hyperlipidemia Respiratory: reports: COPD Gastrointestinal: reports: denies history Obstetrical/Gynecological: reports: denies history Genitourinary: reports: denies history Musculoskeletal: reports: denies history Neurological: reports: denies history Psychiatric: reports: denies history Endocrine/Immune: reports: thyroid disorder Other Conditions: reports: denies history - PRIOR SURGERIES/PROCEDURES Surgical/Procedure History: reports: reviewed, not pertinent, appendectomy, hernia repair - IMMUNIZATION STATUS Childhood Immunizations: See Nurse Assessment Flu Vaccine: See Nurse Assessment - FAMILY HISTORY Family History: reviewed, not pertinent - SOCIAL HISTORY Smoking: non-smoker Substance Use: none/never Alcohol Use Frequency: never Living Situation: family Physical Exam-General - PHYSICAL EXAM-ADULT Initial Vital Signs Reviewed: Yes - CONSTITUTIONAL General Appearance: appears well, alert, no apparent distress - EYES Eyes: PERRL/EOMI, pink conjunctivae - HEAD, EARS, NOSE, MOUTH & THROAT HENMT: normocephalic/atraumatic, moist mucous membranes, normal ENT inspection - NECK Neck: non-tender, full range of motion. negative: other (neck vein distention) - RESPIRATORY Respiratory: chest non-tender, lungs clear, normal breath sounds - CARDIOVASCULAR Cardiovascular: normal peripheral pulses, regular rate, rhythm - SKIN Integumentary: normal color, warm/dry - NEUROLOGIC Neurologic: grossly normal - PSYCHIATRIC Psych/Mental Status: normal mood/affect, normal thought content, normal thought process, oriented x 3 - HEART Score HEART Score: History: Slightly Suspicious HEART Score: ECG: Normal HEART Score: Age: > or = 65 Years HEART Score: Risk Factors for Atherosclerotic Disease: 1 or 2 Risk Factors HEART Score: Troponin: < or = Normal Limit Total HEART Score:: 3 Progress - PLAN OF CARE/RESULTS Progress/Plan/Lab Results: Vital Signs - 8 hr 04/12/19 11:06 04/12/19 14:01 04/12/19 14:02 Temperature 98.1 F Pulse Rate 99 H 96 H Respiratory Rate 20 14 19 Blood Pressure 119/70 166/87 O2 Sat by Pulse Oximetry 97 96 97 04/12/19 14:10 04/12/19 14:20 04/12/19 14:30 Temperature Pulse Rate 88 92 H 96 H Respiratory Rate 22 25 H 20 Blood Pressure O2 Sat by Pulse Oximetry 94 L 92 L 90 L Laboratory Results - last 24 hr 04/12/19 04/12/19 04/12/19 11:26 11:26 11:26 WBC 10.50 RBC 4.73 Hgb 13.8 Hct 42.2 MCV 89.2 MCH 29.2 MCHC 32.7 L RDW Std Deviation 16.8 H Plt Count 206 MPV 12.3 H Immature Gran % (Auto) 0.2 Neut % (Auto) 72.9 Lymph % (Auto) 15.5 L Petroleum % (Auto) 11.1 H Eos % (Auto) 0.1 Baso % (Auto) 0.2 Immature Gran # (Auto) 0.02 Neut # (Auto) 7.65 H Lymph # (Auto) 1.63 Petroleum # (Auto) 1.17 H Eos # (Auto) 0.01 Baso # (Auto) 0.02 D-Dimer, Quantitative Sodium 137 Potassium 4.6 Chloride 99 Carbon Dioxide 23 L Anion Gap 15 BUN 19 Creatinine 1.0 H Estimated GFR/1.73 m2 54 BUN/Creatinine Ratio 19 Glucose 133 H Calculated Osmolality 278 Calcium 9.4 Total Bilirubin 1.33 H AST 151 H ALT 104 H Alkaline Phosphatase 351 H Troponin T < 0.010 Yew-J-Aejlhumoqjp Pept Total Protein 6.5 Albumin 4.2 Globulin 2.3 Albumin/Globulin Ratio 1.8 04/12/19 04/12/19 11:26 11:26 WBC RBC Hgb Hct MCV MCH MCHC RDW Std Deviation Plt Count MPV Immature Gran % (Auto) Neut % (Auto) Lymph % (Auto) Petroleum % (Auto) Eos % (Auto) Baso % (Auto) Immature Gran # (Auto) Neut # (Auto) Lymph # (Auto) Petroleum # (Auto) Eos # (Auto) Baso # (Auto) D-Dimer, Quantitative 1.62 H Sodium Potassium Chloride Carbon Dioxide Anion Gap BUN Creatinine Estimated GFR/1.73 m2 BUN/Creatinine Ratio Glucose Calculated Osmolality Calcium Total Bilirubin AST ALT Alkaline Phosphatase Troponin T Rul-W-Iiidhivzhja Pept 734 H Total Protein Albumin Globulin Albumin/Globulin Ratio Orders Category Date Time Status CHEST-2 VIEWS [RAD] Stat Exams 04/12/19 11:[address] ANGIOGRM PULMONARY ARTERIES [CT] Stat Exams 04/12/19 13:18 Completed BNP [PRO B-NATRIURETIC PEPTIDE] Stat Lab 04/12/19 11:26 Completed C REACTIVE PROT QUANT [CHEM] Stat Lab 04/12/19 14:52 Uncollected CBC WITH DIFF [HEME] Stat Lab 04/12/19 11:26 Completed COMPREHENSIVE METABOLIC PANEL [CHEM] Stat Lab 04/12/19 11:26 Completed D-DIMER [COAG] Stat Lab 04/12/19 11:26 Completed SED RATE [HEME] Stat Lab 04/12/19 14:52 Uncollected TROPONIN T Stat Lab 04/12/19 11:26 Completed Ketorolac [Toradol] Med 04/12/19 14:52 Discontinued 15 mg IV NOW ONE Result Diagrams: 04/12/19 11:26 04/12/19 11:26 - REASSESSMENT Reassessment #1 Time Reassessed: 13:18 Status: unchanged (Pt reports she is still experiencing pain with inspiration. Dr. Galicia discussed lab and x-ray results with the pt and explained why a CTA must be ordered. Pt verbalizes understanding.) - EKG 1 Time of EKG reading by physician:: 11:16 EKG Read and Signed by:: Bo Galicia EKG Interpretation (*Must complete 3 of following elements*): Abnormal Rate: 92 Rhythm: NSR [place]: left QRS: LVH, other (possible L atrial enlargement) MO Interval: normal ST Wave: non-specific ST changes - XRAY 1 XRAY Study: Chest Impression: See EMR Report ([facility] - [address], [address], [place] [address] [place] [address] Department of Imaging Patient: STEVE CRUZ Date: 04/12/19MR#: [id number] : 1940DM Status: PRE ERAcct#: [id number] Age/Sex: 78/FRoom/Bed: Loc: ED Ordering Physician: Bo Galicia MD Family Physician: Lai Mishra MD Reason for Procedure: pleuritic chest pain, dyspnea Signed EXAM: CHEST-2 VIEWS HISTORY: pleuritic chest pain, dyspnea TECHNIQUE: Chest two views COMPARISON: 02/07/2019 and 01/16/2019 FINDINGS: There are small bilateral pleural effusions with basilar atelectasis. The heart is mildly enlarged. No pulmonary edema. The lungs are hyperexpanded. Midthoracic compression fracture is unchanged. IMPRESSION: 1.Emphysema 2.Cardiomegaly with small pleural effusions Electronically signed by Renan Petersen 04/12/2019 11:47 AM 04/12/19 1147 Interpreting Physician: Renan Petersen MD Dictated Date/Time: 04/12/19 1146 cc: Bo Galicia MD; Lai Mishra MD) - CT/MRI 1 CT Study: Angiogram (Pulmonary Arteries) Impression: See EMR Report ([facility] - [address] [facility], [address], [place] [address] [place] [address] Department of Imaging Patient: STEVE CRUZ Date: 04/12/19MR#: [id number] : 1940DM Status: REG ERAcct#: [id number] Age/Sex: 78/FRoom/Bed: Loc: ED Ordering Physician: Bo Galicia MD Family Physician: Lai Mishra MD Reason for Procedure: recent surgery, dyspnea-pleuritic CP, elev dimer ___ Signed EXAM: CT ANGIOGRM PULMONARY ARTERIES HISTORY: recent surgery, dyspnea-pleuritic CP, elev dimer TECHNIQUE: CT chest with intravenous contrast. Pulmonary arterial protocol with MIP images. COMPARISON: 10/14/2018 FINDINGS: Small left pleural effusion measuring 2.0 cm posteriorly and inferiorly in the midline. Trace right pleural fluid. Small pericardial effusion measuring 9 mm in greatest thickness. No thoracic aortic aneurysm or dissection. Normal opacification of the pulmonary arteries and their major branches. There is pulmonary edema. Mildly prominent mediastinal nodes. There is basilar atelectasis. No consolidation. IMPRESSION: 1.No pulmonary emboli 2.Small pericardial and pleural effusions with pulmonary edema 3.Basilar atelectasis. Questionable small underlying infiltrate in the left lower lobe. This exam was performed using automated exposure control, adjustment of mA or kV according to patient size, and/or use of iterative reconstruction technique. Electronically signed by Renan Petersen 04/12/2019 2:37 PM 04/12/19 1437 Interpreting Physician: Renan Petersen MD Dictated Date/Time: 04/12/19 1434 cc: Bo Galicia MD; Lai Mishra MD) - CONSULTS/PCP/HOSPITALIST Notification #1 *Consult/PCP/Hospitalist*: LIANG Dietrich for hospitalist Time Discussed: 15:01 Reason/Comments: Pleuritic chest pain, pericardial effusion Consult Disposition: Admit Departure - Departure Date of Disposition Decision: 04/12/19 Time of Disposition Decision: 15:03 DIAGNOSIS: Pleuritic chest pain, Pericardial effusion Disposition: ADMITTED INPATIENT 09 Certified Medical Emergency: Emergent Condition: Stable Referrals and Follow-Ups: Lai Mishra MD [Primary Care Provider] - - Critical Care Note This patient required my direct & personal management of CC.: No Attestation - Physician/ DORA Attestation Patient care was provided by Advanced Practice Provider:: No The physician spent face to face time with patient:: Yes (e) Advanced Practice Provider documentation review:: Supervising physician onsite and consulted in the evaluation and care of this patient. The physician did have a face to face encounter with the patient. This chart was documented by the indicated scribe, (Aicha Mcgowan, Simi) and accurately reflects the services I performed and decisions made by me, Bo Galicia MD, as attested by the provider's signature.
[2019-04-12] MEDS ORDERED: MORPHINE IV PRN (15:53)
[2019-04-12] MEDS ORDERED: TORADOL IV SCH (16:00)
[2019-04-12] MEDS: NS 1,000 ML IV SCH (16:49)
[2019-04-12] MEDS: MAXIPIME 2 GM in NS 100 ML IV SCH (16:53)
--- NOTE | 2019-04-12 17:49 | PROGRESS NOTE ---
DATE: 04/12/2019 SUBJECTIVE: The patient came in with about 24 hours worth of chest pain. Pain is kind of midsternal, substernal, not quite clear what the etiology is. She has no cough. She does have shortness of breath, and pain is worse upon deep inspiration. Her workup in the ER revealed pneumonia of left lower lobe, and then she has pulmonary edema, pleural effusions, and a pericardial effusion. She recently had a Nevin fundoplication about 3 weeks ago, but she says she has had trouble eating since that time, mostly because of just feeling full early. She cannot eat, those kinds of things, so we are trying to get her situated with that. She is still complaining of some discomfort, so we are going to continue with that and see how she does. OBJECTIVE: Her physical exam is really unremarkable. EKG shows some questionable LVH. ASSESSMENT AND PLAN: Her chest pain is pretty atypical and with her recent fundoplication, I am suspicious that maybe there is something related to that versus a true cardiac source. We will trend enzymes and follow up on her echo. We will treat her disorder with her pneumonia with antibiotics. This is a [id number] encounter note with LIANG Wei. cc: Naga Moura MD
[2019-04-12 17:57] LABS: URINE SOURCE CLEAN CATCH
[2019-04-12 18:02] LABS: BILIRUBIN URINE NEGATIVE (NEGATIVE); BLOOD URINE NEGATIVE (NEGATIVE); COLOR YELLOW; GLUCOSE URINE NEGATIVE (NEGATIVE); KETONE URINE 40 mg/dL (NEGATIVE); LEUKOCYTES URINE NEGATIVE (NEGATIVE); NITRITE URINE NEGATIVE (NEGATIVE); PROTEIN URINE 50 mg/dL (NEGATIVE); TURBIDITY URINE CLEAR (CLEAR); UR EPITHELIAL CELLS <10 /HPF (<10); URINE BACTERIA NEGATIVE /HPF; URINE RBC <10 /HPF (<10); URINE WBC <10 /HPF (<10); UROBILINOGEN URINE NORMAL (NORMAL)
--- NOTE | 2019-04-12 18:15 | HISTORY AND PHYSICAL ---
CHIEF COMPLAINT: Chest pain, shortness of breath. HISTORY OF PRESENT ILLNESS: This is a 78-year-old female with a history of hypertension, hypothyroid, combined variable immunoglobulin deficiency who is 3 weeks status post laparoscopic assisted repair of incarcerated paraesophageal hernia with a posterior fundoplication and gastropexy. She presents complaining of shortness of breath started about 48 hours prior. She states that she does have she says chest pain but she describes this as the feeling of needing to take a deep breath. She states that if she feels like if she could get a good deep breath her symptoms would subside. She has had some dyspnea on exertion and some 2 pillow orthopnea early in the morning this morning. She denied any fevers or chills, any lower extremity edema, productive cough. The patient underwent repair of incarcerated paraesophageal hiatal hernia with a Toupet fundoplication and gastropexy on March 19. She states that she was able to drink liquids without difficulty for the 1st 2 weeks. She was put on a bland diet and she states that she has had difficulty with a bland diet. She describes this as the feeling of everything knotting up after she swallows. She has had no nausea. She has had a course no vomiting. Over the last week she has had very little p.o. intake per her . PAST MEDICAL HISTORY: 1. Hypertension. 2. Hypothyroid. 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 4. Hyperlipidemia. 5. Gastroesophageal reflux disease. PAST SURGICAL HISTORY: Rotator cuff right December 17, appendectomy February 04 and laparoscopic robot assisted repair of incarcerated paraesophageal hernia, Toupet fundoplication and gastropexy on 03/19/2019. SOCIAL HISTORY: She is , lives with her . She denies any alcohol, tobacco, or illicit drug use. ALLERGIES: Codeine which causes vomiting. HOME MEDICATIONS: 1. Tramadol 50 mg p.o. q.6 hours p.r.n. pain. 2. Levothyroxine 100 mcg p.o. daily. Further medications will be verified by the nursing staff and will review and restart as appropriate. REVIEW OF SYSTEMS: Discussed with the patient with pertinent positives stated in HPI. She denied any syncope or dizziness, any palpitations, any nausea, vomiting, diarrhea, constipation, black or bloody vomitus or stools, any hematuria, dysuria, frequency, or urgency, she denies any fevers or chills, any productive cough. PHYSICAL EXAMINATION: GENERAL: This is a 78-year-old female who is lying on the stretcher in the emergency room in no distress. VITAL SIGNS: Blood pressure is 140/70 with heart rate of 90, respirations are 20, temperature is 98.5 degrees oral with O2 saturations 95-97% on room air. HEENT: Pupils equal, round, react to light. EOMs are intact sclerae anicteric. Head is normocephalic, atraumatic. Mucous membranes are moist. NECK: Supple. Trachea midline. CARDIOVASCULAR: Regular rate and rhythm. S1 and S2 are appreciated. She has no murmur, no lower extremity edema. Calves are nontender bilateral with peripheral pulses palpable x4 extremities. PULMONARY: Breath sounds are clear. No increased work of breathing noted. Chest rises and falls symmetric respiration. GASTROINTESTINAL: Abdomen is soft. She does have some epigastric tenderness with bowel sounds in all 4 quadrants. GENITOURINARY: She has no CVA or suprapubic tenderness. SKIN: Warm and dry. NEUROLOGIC: She is alert, oriented x3. LABS: WBC is 10.5 with hemoglobin 13.8, hematocrit 42.2, platelets of 206,000. D-dimer is 1.62. Sodium 137, potassium 4.6, BUN 19, creatinine 1 with a glucose of 133, total bilirubin is 1.33 with AST 151, ALT 104, alkaline phosphatase 351. Troponin is less than 0.010. CRP is 126.36. TSH is 0.20. Chest x-ray reveals emphysema and cardiomegaly with small pleural effusions. CTA pulmonary arteries reveals no pulmonary emboli. Is a small left pericardial effusion measuring 2 cm posteriorly inferiorly in the midline. Trace right pleural fluid, small pericardial effusion measuring 9 mm in greatest thickness. No thoracic aortic aneurysm or dissection, normal opacification of the pulmonary arteries and their major branches. There is pulmonary edema, mildly prominent mediastinal nodes, there is basilar atelectasis with questionable small underlying infiltrates in the left lower lobe. ASSESSMENT AND PLAN: 1. Chest pain. 2. Shortness of breath. 3. Pericardial effusion. 4. Elevated D-dimer with a negative CTA pulmonary for pulmonary embolus. 5. Hypothyroid. 6. Elevated liver function tests. 7. Combined variable immunoglobulin deficiency. 8. Recent repair of incarcerated paraesophageal hiatal hernia status post fundoplication. 9. Anorexia. 10. Gastroesophageal reflux disease. PLAN: She will be admitted to the hospital, placed on telemetry for close monitoring. identify her medications and continue as appropriate. consult Dr. Ventura general surgery. bilateral lower extremity Doppler, obtain blood cultures Merrem and Zyvox as the patient is just 3 weeks postop, incentive spirometer every 4 hours, check JH and a RA. full liquids with chocolate Boost with meals and at bedtime as she has been able to drink these. NPO at midnight. GI series with barium swallow in the morning. Prilosec b.i.d., morphine for pain, Zofran for nausea, continue with IV hydration cefepime q.8 hours and Zyvox. Plan was discussed with Dr. Moura. Further treatments pending hospital course. Dictated by LIANG Cooper for Naga Moura MD cc: LIANG Cooper MD [facility]
--- NOTE | 2019-04-12 18:27 | EKG Report ---
Test Performed on : 04/12/2019 11:12:05 AM Test Reason : CP/SOB Blood Pressure : / mmHG Vent. Rate : 092 BPM Atrial Rate : 092 BPM P-R Int : 156 ms QRS Dur : 088 ms QT Int : 352 ms P-R-T Axes : 047 -37 075 degrees QTc Int : 435 ms Normal sinus rhythm. Possible Left atrial enlargement Left axis deviation Left ventricular hypertrophy Nonspecific ST and T wave abnormality Abnormal ECG When compared with ECG of 16-JAN-2019 11:43, ST elevation now present in Inferior leads ST elevation now present in Lateral leads Unconfirmed Result
[2019-04-12] MEDS: ZOFRAN IV PRN (22:08)
[2019-04-12] MEDS: CRESTOR PO SCH (22:10)
[2019-04-12] MEDS: PRILOSEC PO SCH (22:11)
[2019-04-12] MEDS: ZYVOX PO SCH (22:11)
[2019-04-13] MEDS: ZOFRAN IV PRN ×5 (01:55→21:41)
[2019-04-13] MEDS: DILAUDID IV PRN ×4 (01:56→15:33)
[2019-04-13] MEDS: MAXIPIME 2 GM in NS 100 ML IV SCH ×3 (05:01→21:32)
[2019-04-13] MEDS: SYNTHROID PO SCH (06:23)
[2019-04-13 06:41] LABS: BASO# 0.02 X1000 (0.0-0.2); BASO% 0.1 % (0.0-0.8); EOS# 0.03 X1000 (0.0-0.7); EOS% 0.2 % (0.0-10.0); HEMATOCRIT 37.7 % (37.0-47.0); HEMOGLOBIN 12.4 g/dL (12.0-16.0); IMM GRAN# 0.03 X1000 (0.0-0.04); IMM GRAN% 0.2 % (0.0-0.5); LYMPH# 1.38 X1000 (1.2-3.4); LYMPH% 10.2 % (20.5-51.1); MCH 29.8 PG (27-31); MCHC 32.9 g/dL (33-37); MCV 90.6 FL (81-99); MONO# 1.76 X1000 (0.11-0.59); MPV 12.8 FL (7.4-10.4); NEUT# 10.36 X1000 (1.4-6.5); NEUT% 76.3 % (42.2-75.2); PLT 178 X1000 (130-400); RBC 4.16 XMIL (4.2-5.4); WBC 13.58 X1000 (4.8-10.8)
[2019-04-13] MEDS: NS 1,000 ML IV SCH ×2 (06:42→21:32)
--- NOTE | 2019-04-13 06:56 | GENERAL SURGERY CONSULTATION ---
DATE: 04/13/2019 REQUESTING PHYSICIAN: Dr. Moura. REASON FOR CONSULTATION: Consult is concerning dysphagia. HISTORY OF PRESENT ILLNESS: A 78-year-old female well known to me who, on 03/20/2019, underwent a robotic-assisted Toupet fundoplication. I had seen her several times in the postoperative period. She had been doing relatively well except had the dysphagia last week when I saw her back. I told her to try to keep a good record of any kind of symptoms or chest pain, and call the office or come back and see me, or go to the ER if these symptoms worsen. We had discussed that day of her office visit about trying new foods, which she agreed to and apparently went to [facility] and was able to eat eggs and grits without any difficulty but then tried stuff over the weekend and had some dysphagia. She came to the emergency department, had a CT angiogram to rule out pulmonary embolism given her chest pain, which looked okay. Overall, her repair of her hiatal hernia looked okay to me. I did not see a recurrence. She is scheduled for an upper GI series today. PAST MEDICAL HISTORY: Includes hypertension, hypothyroidism, combined variable immunodeficiency, hyperlipidemia, gastroesophageal reflux disease. PAST SURGICAL HISTORY: Includes recent Toupet fundoplication, appendectomy, rotator cuff surgery. SOCIAL HISTORY: , lives with . ALLERGIES: Codeine. HOME MEDICATIONS: Reviewed. FAMILY HISTORY: Reviewed with patient and noncontributory to this case. REVIEW OF SYSTEMS: A full 10 point review of systems was obtained and negative except as specified in the HPI. PHYSICAL EXAMINATION: Vital Signs: The patient is currently afebrile. Her vital signs are stable. General Examination: No acute distress. HEENT: Normocephalic, atraumatic. Pupils equal, round, reactive to light. Mucous membranes moist. Oropharynx benign. Neck: Supple. Trachea midline. Cardiovascular: Regular rate and rhythm. Lungs: Grossly clear. Abdomen: Soft, nontender, nondistended at this point. Extremities: Moves all extremities. Neurologic: Grossly intact. Skin: No signs of jaundice. Vascular: All extremities perfused. LABORATORY: White blood cell count is normal. There is no left shift. Hematocrit and hemoglobin are normal. Bilirubin is slightly elevated at 1.3. AST, ALT, and alkaline phosphatase are all slightly elevated. D-dimer is slightly elevated but she is 3 weeks postop. IMAGING: As noted above. ASSESSMENT AND PLAN: A 78-year-old female with dysphagia and chest pain. Dysphagia and chest pain. At this time, I agree with an upper gastrointestinal series. I would like to see in the mechanics of her swallowing. The best I can tell at this point, she does have an intact repair with the majority of her stomach, if not all, back down into her abdomen, but would like to see if there are any mechanical issues status post repair of the hiatal hernia. She does have elevation of her bilirubin, AST, ALT, and alkaline phosphatase, so I agree with ultrasound but would like to rule out complication from surgery prior to any other kind of intervention. Her symptoms seem intermittent. She has been able to tolerate regular food, although it is somewhat, like I said, intermittent with her dysphagia. At this point, continue supportive care. No immediate plans for surgical intervention unless something shows up on either diagnostic test. cc: Rudy Acosta MD
[2019-04-13 07:16] LABS: ALB/GLOB RATIO 1.2; ALBUMIN 3.4 g/dL (3.5-5.0); CALCIUM 9.5 mg/dL (8.8-10.2); POTASSIUM 5.2 mmol/L (3.5-5.1); TOTAL BILIRUBIN 1.33 mg/dL (0.20-1.00); TOTAL PROTEIN 6.3 g/dL (6.3-8.3)
[2019-04-13] MEDS ORDERED: NON-FORMULARY MED (Lansoprazole 30 MG) PO SCH (09:00)
--- NOTE | 2019-04-13 09:14 | Diag Imaging Result Doc PS360 ---
EXAM: US GB < RUQ (LIMITED) INDICATION: elevated liver enzymes COMPARISON: 05/13/2012 FINDINGS: The gallbladder appears normal with no stones, wall thickening, or pericholecystic fluid. The common bile duct is normal in diameter. Sonographic Ojeda's sign was reported to be negative. Liver echotexture is slightly increased on a few images suggesting likely mild hepatic steatosis. No discrete hepatic mass is identified. Portal venous flow is hepatopetal. The pancreas is partially obscured by bowel gas. The visualized portion is unremarkable. There are aortic atherosclerotic calcifications. No aortic aneurysm is appreciated. The visualized IVC is unremarkable. There is a 4.7 cm simple cyst at the upper pole of the right kidney. The right kidney is unremarkable, otherwise. IMPRESSION: Suggestion of mild hepatic steatosis. Electronically signed by Donaldo Gay 04/13/2019 9:11 AM
--- NOTE | 2019-04-13 09:50 | Diag Imaging Result Doc PS360 ---
EXAM: GI SERIES WITH BA SWALLOW 04/13/2019 HISTORY: dysphagia TECHNIQUE: Air contrast upper GI series and barium swallow. 34 images, two minutes 30 seconds fluoroscopy time, 1993.8 cGy. COMMENT: The patient is able swallow barium without difficulty. There is a mild degree of apparent cricopharyngeal achalasia. There are tertiary contractions in the mid and distal esophagus. There is no evidence or reflux, hiatal hernia, mucosal ulceration, or stricture. The stomach empties promptly. There is no evidence of mucosal ulceration the stomach or visualized small bowel. The examination was somewhat limited due to the patient's limited mobility. IMPRESSION: No evidence of obstruction or reflux. Mild cricopharyngeal achalasia and presbyesophagus. Electronically signed by Francesco Cortez 04/13/2019 9:47 AM
[2019-04-13] MEDS: COZAAR PO SCH (09:52)
[2019-04-13] MEDS: MAG-OX PO SCH (09:52)
[2019-04-13] MEDS: ZYVOX PO SCH (09:52)
[2019-04-13] MEDS: PRILOSEC PO SCH ×2 (09:53→21:32)
--- NOTE | 2019-04-13 12:29 | ECHO REPORT ---
ORDER DATE: 04/12/2019 INDICATION: Chest pain, shortness of breath, pericardial effusion found on CTA. FINDINGS: 1. Right atrium appears normal in size. 2. Trace tricuspid regurgitation. Insufficient data to estimate RV systolic pressure. 3. Normal RV size and systolic function. 4. No significant pulmonic insufficiency. 5. Normal left atrial size with a volume index of 21. 6. No mitral valve prolapse. No significant mitral regurgitation. No mitral stenosis. 7. Normal LV size. There is no evidence of left ventricular hypertrophy with a posterior and interventricular septal wall thickness of 1.1 and 1.0 cm respectively. Normal LV systolic function. Estimated EF of 60% with normal wall motion. 8. Aortic valve opens well. No evidence of stenosis or insufficiency. 9. There appears to be a small pericardial effusion with no evidence of tamponade physiology. 10. Aorta appears normal in visualized segments. cc: MD Justine Patel CRNP MTDD
[2019-04-13] MEDS ORDERED: VANCOMYCIN IV PER PHARMACY MISC SCH (12:45)
[2019-04-13] MEDS ORDERED: VANCOMYCIN 1,450 MG in NS 250 ML IV ONE (14:00)
[2019-04-13] MEDS ORDERED: G.I. COCKTAIL PO ONE (18:07)
--- NOTE | 2019-04-13 18:24 | PROGRESS NOTE ---
DATE: 04/13/2019 SUBJECTIVE: Patient has no major complaints. OBJECTIVE: Blood pressure is 131/64, heart rate 97, respiratory rate is 19, temperature is 98.7 degrees.Cardiovascular: Regular rate and rhythm. Pulmonary: Bilateral breath sounds. Clear to auscultation. GI: Soft, nontender, nondistended. Bowel sounds are positive. LABORATORY DATA: White count 13, hemoglobin and hematocrit 12 and 37, platelets 178,000. Potassium 5.2, AST and ALT are 182 and 128, T bilirubin of 1.33. Really an unclear source. PROBLEM LIST: 1. Atypical chest pain. Her testing is all normal. Her barium swallow does not show obstruction. She does have an elevation in her liver enzymes but her ultrasound is unremarkable. I am not sure what is causing her chest pain and she still has difficulty eating. May need to consider endoscopy, I will leave that up to Dr. Acosta. Dr. Thurman has been consulted but I guess Dr. Acosta he can handle that. We will continue supportive measures. I am not sure if this chest pain is cardiac, it is pretty atypical for cardiac. We have done serial enzymes and an echocardiogram, may consider cardiology opinion but all this is pretty atypical. Her echocardiogram is really unremarkable. She does have some risk factors. 2. She has a positive blood culture most likely contaminant. She had red man syndrome with vancomycin so I am holding vancomycin for the time being until we can confirm this is a true infection. She is on cefepime which is for the next problem. 3. Pneumonia which may just explain her issues there. I am just not sure what all we are going to do with her and continue to follow. cc: Naga Moura MD
[2019-04-13 21:05] LABS: AGAP 11; ALKALINE PHOSPHATASE 422 U/L (32-104); BUN 21 mg/dL (8-22); CALCIUM 9.4 mg/dL (8.8-10.2); CHLORIDE 105 mmol/L (98-107); COSMO 280; CREATININE 0.9 mg/dL (0.5-0.9); ESTIMATED GFR > 60; GLUCOSE 124 mg/dL (70-104); GOT 123 U/L (10-30); GPT 108 U/L (10-36); POTASSIUM 4.9 mmol/L (3.5-5.1); SODIUM 138 mmol/L (136-145); TCO2 22 mmol/L (25-35); TOTAL BILIRUBIN 1.04 mg/dL (0.20-1.00)
[2019-04-13] MEDS: CRESTOR PO SCH (21:32)
[2019-04-14] MEDS: ZOFRAN IV PRN ×4 (02:44→16:00)
[2019-04-14] MEDS: DILAUDID IV PRN ×3 (02:49→20:08)
[2019-04-14] MEDS ORDERED: LANOXIN IV ONE (05:41)
[2019-04-14] MEDS ORDERED: LOPRESSOR IV ONE (05:42)
--- NOTE | 2019-04-14 06:01 | EKG Report ---
Test Performed on : 04/14/2019 05:48:26 AM Test Reason : abnormal Blood Pressure : / mmHG Vent. Rate : 121 BPM Atrial Rate : 144 BPM P-R Int : 000 ms QRS Dur : 084 ms QT Int : 298 ms P-R-T Axes : 000 -36 100 degrees QTc Int : 423 ms Atrial fibrillation. with rapid ventricular response. Left axis deviation Moderate voltage criteria for LVH, may be normal variant Possible Lateral infarct , age undetermined Abnormal ECG When compared with ECG of 12-APR-2019 11:12, (Unconfirmed) Atrial fibrillation. has replaced Sinus rhythm. Borderline criteria for Lateral infarct are now present Confirmed by Lissette Garcia MD ([id number]) on 04/19/2019 9:27:16 PM
[2019-04-14] MEDS: MAXIPIME 2 GM in NS 100 ML IV SCH ×3 (06:31→21:58)
[2019-04-14] MEDS: SYNTHROID PO SCH (06:32)
[2019-04-14 07:17] LABS: BASO# 0.02 X1000 (0.0-0.2); BASO% 0.2 % (0.0-0.8); EOS# 0.11 X1000 (0.0-0.7); EOS% 1.1 % (0.0-10.0); HEMATOCRIT 35.9 % (37.0-47.0); HEMOGLOBIN 11.7 g/dL (12.0-16.0); IMM GRAN# 0.02 X1000 (0.0-0.04); IMM GRAN% 0.2 % (0.0-0.5); LYMPH# 1.49 X1000 (1.2-3.4); LYMPH% 15.4 % (20.5-51.1); MCH 29.3 PG (27-31); MCHC 32.6 g/dL (33-37); MCV 89.8 FL (81-99); MONO# 1.24 X1000 (0.11-0.59); MONO% 12.8 % (1.7-9.3); MPV 12.9 FL (7.4-10.4); NEUT# 6.81 X1000 (1.4-6.5); NEUT% 70.3 % (42.2-75.2); PLT 183 X1000 (130-400); RDW 17.2 % (11.5-14.5); WBC 9.69 X1000 (4.8-10.8)
[2019-04-14] MEDS: NS 1,000 ML IV SCH ×2 (07:59→21:58)
[2019-04-14 08:08] LABS: AGAP 14; BUN 19 mg/dL (8-22); CALCIUM 9.1 mg/dL (8.8-10.2); CHLORIDE 105 mmol/L (98-107); COSMO 282; CREATININE 0.8 mg/dL (0.5-0.9); ESTIMATED GFR > 60; GLUCOSE 97 mg/dL (70-104); POTASSIUM 5.3 mmol/L (3.5-5.1); SODIUM 140 mmol/L (136-145); TCO2 21 mmol/L (25-35)
--- NOTE | 2019-04-14 09:07 | GENERAL SURGERY PROGRESS NOTE ---
DATE: 04/14/2019 SUBJECTIVE: Patient is going in and out of atrial fibrillation to a heart rate up to the 110s. Workup yesterday with upper GI and ultrasound was essentially normal. She is doing about the same overall. OBJECTIVE: Vital Signs: The patient is currently afebrile. Her vital signs have been stable. General Examination: No acute distress. Cardiovascular: Irregularly irregular. Lungs: Grossly clear. Abdomen: Soft, nontender, nondistended. Laboratory: Reviewed from yesterday. ASSESSMENT AND PLAN: A 78-year-old female with dysphagia and new onset atrial fibrillation with chest pain. 1. New onset atrial fibrillation with chest pain. At this time, she did have an echocardiogram that did not show any abnormalities but we will get a stat electrocardiogram, troponin levels, and a BMP on her. I think she probably needs to be moved to the cardiac intensive care unit. I discussed her case with the hospitalist covering for the night. We will try to arrange this. We will get cardiology to see her. In the setting of atypical chest pain and new onset atrial fibrillation, concerned about the potential for a cardiac source but we will need to monitor her. She does not have an elevated enough heart rate and she is not in rapid ventricular response to merit going into any kind of rate control at this time. We will need to monitor her closely. 2. Status post Toupet fundoplication. At this time, upper gastrointestinal was normal. She has not had a recurrence of her hiatal hernia. She does have some cricopharyngeal achalasia but it is very mild. I would not suggest that she needs anything done at this point for it. Maybe have telemetry down the road but at this time, just monitor it. We will continue to follow. cc: MD KARI Hurt
[2019-04-14 11:29] LABS: ALB/GLOB RATIO 1.5; ALBUMIN 3.3 g/dL (3.5-5.0); DIRECT BILIRUBIN 0.4 mg/dL (0.00-0.20); MAGNESIUM 2.1 mg/dL (1.5-2.7); TOTAL BILIRUBIN 0.81 mg/dL (0.20-1.00); TOTAL PROTEIN 5.5 g/dL (6.3-8.3)
[2019-04-14] MEDS: CARDIZEM PO SCH ×3 (12:11→22:41)
[2019-04-14 13:21] LABS: HEPATITIS PROFILE ACUTE SEE COMMENTS
--- NOTE | 2019-04-14 14:11 | EKG Report ---
Test Performed on : 04/14/2019 2:06:43 PM Test Reason : Rhythm change Blood Pressure : / mmHG Vent. Rate : 085 BPM Atrial Rate : 085 BPM P-R Int : 164 ms QRS Dur : 088 ms QT Int : 348 ms P-R-T Axes : 040 -32 077 degrees QTc Int : 414 ms Normal sinus rhythm. Left axis deviation Moderate voltage criteria for LVH, may be normal variant Nonspecific ST and T wave abnormality Abnormal ECG When compared with ECG of 14-APR-2019 05:48, (Unconfirmed) Sinus rhythm. has replaced Atrial fibrillation. Borderline criteria for Lateral infarct are no longer present Confirmed by Jose ZULETA, Lissette Gant ([id number]) on 04/19/2019 9:28:31 PM
--- NOTE | 2019-04-14 14:27 | GASTROENTEROLOGY PROGRESS NOTE ---
DATE: 04/14/2019 SUBJECTIVE: Patient is awake and alert. She has family at the bedside. She is complaining of some nausea and abdominal pain. She has had recent Nevin fundoplication approximately [address] Acosta. She is also being monitored for new onset atrial fibrillation. Workup is in progress. Cardiology has been consulted. Her liver function tests have improved some today. Today total bilirubin is normal 0.81, AST 88, ALT 93, alkaline phosphatase 431. Hepatitis profile is pending. Her JH screen was positive. OBJECTIVE: Vital Signs: Temperature 98.7 degrees, pulse 100, respirations 20, blood pressure 149/77. General: Patient is awake, alert, no acute distress. Abdomen: With some tenderness. She has healing laparoscopic incisions from her recent Nevin fundoplication. LABORATORY: Results as noted above. ASSESSMENT AND PLAN: 1. Status post recent fundoplication following with Dr. Acosta. She had a upper gastrointestinal series that showed no evidence of obstruction or reflux with mild cricopharyngeal achalasia and presbyesophagus, continue current medications, PPI. 2. New onset atrial fibrillation and chest pain. Patient has started workup and cardiology consult. 3. Nausea and abdominal pain. Continue current medications. She may require EGD for further evaluation if symptoms do not improve but would proceed with cardiac workup first. 4. Elevated liver function tests. She has had some improvement in her liver function tests today. Her JH screen was positive. Hepatitis profile is pending. She does have positive blood cultures. Will continue to follow liver test and further plans to be made according to her progress. I have discussed this case with Dr. Thurman. Dictated by LIANG Coyle for Catracho Thurman MD cc: LIANG Samuel MD [facility]
--- NOTE | 2019-04-14 14:48 | Extremity Venous Study ---
PROCEDURE NAME: Venous U/S Bilateral Legs - 04/13/2019 BILATERAL LOWER EXTREMITY VENOUS ULTRASOUND: YIELD LOSS INSPECTOR: Nathanael. REFERRING PHYSICIAN: Dr. Coburn. INDICATION: Shortness of breath, chest pain with elevated D-dimer. FINDINGS: Deep and superficial veins of the bilateral lower extremities were visualized along their course. All vessels appeared compressible with forward flow. No evidence intraluminal thrombus. SUMMARY: No deep or superficial venous thrombosis seen in the bilateral lower extremities. cc: MD Justnie Hilario CRNP
--- NOTE | 2019-04-14 15:25 | PROGRESS NOTE ---
DATE: 04/14/2019 SUBJECTIVE: Patient has no major complaints. OBJECTIVE: Vital signs: Blood pressure is 149/77, heart rate of 100, respiratory rate 20, temperature 98.7 degrees, 98% on room air. Cardiovascular: Regular rate and rhythm. Pulmonary: Bilateral breath sounds. Clear to auscultation. GI: Soft, nontender, nondistended. Bowel sounds were positive. LABORATORY DATA: Shows white count 9, hemoglobin and hematocrit 11 and 35, platelets of 183,000. Potassium 5.3. AST and ALT are 88 and 93 with an alkaline phosphatase of 431. Mild elevation in T. bilirubin. JH was positive but antibody pattern, none of them were elevated, so unclear what to do with that. Hepatitis screen was negative. PROBLEM LIST: 1. Atrial fibrillation with rapid ventricular response. That is a new diagnosis, although she has been now rate controlled. She has converted back to normal sinus. Workup is in place. Her TSH is actually low but her free T4 is normal. Will check a free T3 level just in case. Her echo really was fairly unremarkable. EF was intact. She did not have any significant valvular abnormalities. I am not entirely sure this may not be secondary to poor p.o. intake and electrolyte disturbances, although her potassium if anything has been on the high side. Cardiology has been consulted and we will follow recommendations. I think she does meet criteria for anticoagulation. She is 78. She is female. I am just holding any anticoagulation right now because we are not entirely sure she may not need endoscopy. 2. Odynophagia. Essentially she is just not eating. I am not sure how much of this is psychological. Her barium swallow was unremarkable. I do think she would benefit from an EGD once we get cardiac clearance, assuming there is not any major cardiac issues that should prevent her from getting an endoscopy, just to make sure she does not have gastritis or esophagitis or ulcer because she is really just not eating enough to maintain calories. 3. Coagulase-negative staph bacteremia. It was 1/2 so contaminant. I am not continuing antibiotics. 4. Pneumonia. She has a left lower lobe pneumonia. We are going to continue cefepime and follow clinically. 5. Disposition. I am going to watch her in CICU ust to make sure her heart rate is stabilized and she can probably go back to the floor soon. Appreciate input. Dr. Acosta is also following. cc: Naga Moura MD [facility]
[2019-04-14] MEDS: MAG-OX PO SCH (15:39)
[2019-04-14] MEDS: PRILOSEC PO SCH ×2 (15:39→22:41)
[2019-04-14] MEDS: COZAAR PO SCH (15:39)
[2019-04-14] MEDS ORDERED: SODIUM CHLORIDE 0.9% INJ PRN (18:09)
[2019-04-14] MEDS ORDERED: PHENERGAN IV PRN (18:09)
--- NOTE | 2019-04-14 19:49 | CONSULTATION ---
DATE OF CONSULTATION: 04/14/2019 IMPRESSION: 1. Transient atrial tachyarrhythmias with bursts of either atrial tachycardia or atrial fibrillation. Alternating with sinus rhythm. The patient has no prior history of atrial fibrillation and has converted back to steady sinus rhythm. 2. Currently admitted with inability to swallow and atypical chest discomfort. She is status post repair of incarcerated paraesophageal hiatal hernia with Toupet fundoplication and gastropexy on March 19, approximately 3 weeks ago. 3. Hypertension. 4. Hyperlipidemia. 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 6. Gastroesophageal reflux disease. RECOMMENDATIONS: 1. Continue oral diltiazem as tolerated. 2. Continue to evaluate difficulty swallowing following recent repair of paraesophageal hernia. Her chest symptoms are very atypical and probably noncardiac and related to recent surgery. HISTORY: This 78-year-old white female with past history of gastroesophageal reflux disease, hypertension, hypothyroidism, combined variable immunoglobulin deficiency who is 3 weeks status post laparoscopic-assisted repair of incarcerated paraesophageal hernia with posterior fundoplication and gastropexy who was admitted with difficulty with atypical chest discomfort and inability to swallow. She has had some nausea and vomiting as well. She reports having recent problems with inability to swallow. Things pretty much come right back up. This is with liquids and solids. She also describes some discomfort in her chest that is accentuated with deep breathing. While monitored in the hospital, she started to show irregular tachycardia. ECG tracings were reviewed and demonstrates sinus rhythm alternating with paroxysms of atrial tachycardia versus atrial fibrillation. This seems to have settled down and she has been in pretty much steady sinus rhythm. She is not aware of any previous cardiac problems. There is no previous atrial fibrillation in the past. She denies any chest pain or coronary disease history. PAST MEDICAL HISTORY: 1. Hypertension. 2. Hyperlipidemia. 3. Gastroesophageal reflux disease. 4. Combined variable immunoglobulin deficiency. 5. Hyperlipidemia. PAST SURGICAL HISTORY: Includes recent laparoscopic assisted repair of incarcerated paraesophageal hernia with posterior fundoplication and gastropexy, appendectomy, and right rotator cuff repair. ALLERGIES: She is allergic or intolerant to codeine. MEDICATIONS PRIOR TO ADMISSION: As listed. SOCIAL HISTORY: She is . She does not use alcohol and does not smoke. FAMILY HISTORY: Negative for premature coronary disease. REVIEW OF SYSTEMS: Pulmonary: Noteworthy for some shortness of breath, as well as atypical chest discomfort. Chest discomfort characterized as being worse with deep breaths and also when she is lying down. Gastrointestinal: Notable for inability to swallow and food is not going down well. Constitutional noteworthy for fatigue and weakness. Remainder of the review of systems negative/noncontributory with 14 total systems reviewed. PHYSICAL EXAMINATION: General: This is a elderly white female in no distress. Vital signs: Blood pressure 149/63, heart rate 86 and regular with ECG monitor currently showing sinus rhythm. Oxygen saturation 100% on nasal cannula oxygen at 2 L/minute. There is no significant jugular venous distention. Chest: Clear to auscultation. Cardiac Exam: Reveals a regular rate and rhythm without appreciable murmur or gallop. Abdomen: Soft. Bowel sounds audible. Extremities: Without edema. Neurologic: Reveals her to be alert and fully oriented. Speech is fluent. She moves all 4 extremities equally well. Skin: Warm and dry. Psychiatric: Reveals her mood to be appropriate. PERTINENT DATA: Twelve lead EKG obtained this morning demonstrates sinus rhythm with frequent bursts of atrial tachycardia versus atrial fibrillation, left axis deviation, and left ventricle hypertrophy. LABORATORY DATA: Includes a white blood cell count 9.69, hematocrit 35.9, hemoglobin 11.7, platelet count 193,000. Sodium 140, potassium 5.3, chloride 105, carbon dioxide 21, BUN 19, creatinine 0.8. Glucose is 97. Initial troponin less than 0.01. Followup troponin less than 0.01. Albumin 3.3. cc: Neel Burns MD
[2019-04-14] MEDS: CRESTOR PO SCH (22:41)
[2019-04-15] MEDS ORDERED: VANCOMYCIN 1 GM/NS 1 GM/250 ML IVPB IV SCH (02:00)
[2019-04-15] MEDS: CARDIZEM PO SCH ×4 (03:14→22:10)
[2019-04-15 05:17] LABS: BASO# 0.02 X1000 (0.0-0.2); BASO% 0.3 % (0.0-0.8); EOS# 0.13 X1000 (0.0-0.7); EOS% 1.7 % (0.0-10.0); HEMATOCRIT 32.7 % (37.0-47.0); HEMOGLOBIN 10.8 g/dL (12.0-16.0); IMM GRAN% 0.3 % (0.0-0.5); LYMPH# 1.04 X1000 (1.2-3.4); LYMPH% 13.3 % (20.5-51.1); MCH 29.4 PG (27-31); MCV 89.1 FL (81-99); MONO# 1.09 X1000 (0.11-0.59); MPV 11.7 FL (7.4-10.4); NEUT# 5.51 X1000 (1.4-6.5); NEUT% 70.4 % (42.2-75.2); PLT 212 X1000 (130-400); RBC 3.67 XMIL (4.2-5.4); RDW 17.1 % (11.5-14.5); WBC 7.81 X1000 (4.8-10.8)
[2019-04-15 05:18] LABS: IMM GRAN# 0.02 X1000 (0.0-0.04)
[2019-04-15 05:38] LABS: AGAP 13; BUN 18 mg/dL (8-22); CHLORIDE 108 mmol/L (98-107); COSMO 277; CREATININE 0.9 mg/dL (0.5-0.9); ESTIMATED GFR > 60; GLUCOSE 88 mg/dL (70-104); MAGNESIUM 2.1 mg/dL (1.5-2.7); POTASSIUM 4.1 mmol/L (3.5-5.1); SODIUM 138 mmol/L (136-145); TCO2 17 mmol/L (25-35)
[2019-04-15] MEDS: ZOFRAN IV PRN ×3 (05:56→22:51)
[2019-04-15] MEDS: MAXIPIME 2 GM in NS 100 ML IV SCH ×3 (05:58→22:07)
--- NOTE | 2019-04-15 06:22 | GENERAL SURGERY PROGRESS NOTE ---
DATE: 04/15/2019 SUBJECTIVE: Patient is still with persistent nausea. She was transferred up to the CICU. Workup for her heart has essentially been unrevealing. OBJECTIVE: Vital Signs: Patient is currently afebrile. Her vital signs are stable. General: No acute distress. Cardiovascular: Regular rate and rhythm. Lungs: Grossly clear. Abdomen: Soft, nontender, nondistended. ASSESSMENT AND PLAN: A 78-year-old female status post Toupet fundoplication and repair of hiatal hernia with nausea, vomiting, new onset atrial fibrillation. 1. Nausea and vomiting. At this time upper GI series did not show any obvious mechanical obstruction, but she is having persistent nausea. There was no gastric outlet obstruction. At this time, the only other recommendation would be for GI to do an EGD and will ask to see if they will perform one here in the near future, if not today. Otherwise, continue supportive care. 2. Atrial fibrillation. At this time, continue to monitor. Cardiology has been consulted. Will just keep a close eye on her. cc: Rudy Acosta MD
[2019-04-15] MEDS: SYNTHROID PO SCH (07:09)
[2019-04-15] MEDS: LOVENOX SUBQ SCH (10:06)
[2019-04-15] MEDS: PRILOSEC PO SCH (10:07)
[2019-04-15] MEDS: NS 1,000 ML IV SCH (13:33)
--- NOTE | 2019-04-15 15:24 | PROGRESS NOTE ---
DATE: 04/15/2019 SUBJECTIVE: Patient has no major complaints, except for persistent pain and dysphagia. OBJECTIVE: 146/69, heart rate 79, respiratory rate 25, temperature 98.2 degrees, 97% on 2 L.Cardiovascular: Regular rate and rhythm. Pulmonary: Bilateral breath sounds clear to auscultation. GI was soft, nontender, nondistended. Bowel sounds are positive. Extremity: No clubbing or cyanosis. Lymphatic: No peripheral edema. Neurological: Nonfocal. DIAGNOSTIC STUDIES: White count was 7.8, hemoglobin 10.8, hematocrit 32, platelets of 212,000. Potassium of 4.1, bicarbonate was 17. Her liver enzymes are a bit elevated. Her abdominal ultrasound just showed some issues there. PROBLEM LIST: 1. Atrial fibrillation. She is now normal sinus. She is rate controlled on Cardizem. I do think she meets criteria for anticoagulation. However, we are in the middle of trying of workup the GI issue so that would be a long-term goal. 2. Dysphagia. She had a fundoplication, and she is still having symptoms. Made her n.p.o. today and we are going to pursue endoscopy per Dr. Thurman. I appreciate his input. 3. Moderate protein-calorie malnutrition we will initiate Clinimix and follow. She is still very, very malnourished. We will continue to follow. 4. Left lower lobe pneumonia. She is on cefepime. It is day 4. DISPOSITION: Pending her clinical status. We do need to work on getting her up and make sure she is not getting too weak. I think she is probably stable to go to the floor. Since she is getting an endoscopy, we will observe her afterwards just to make sure that she stabilizes, and she does not require any other issues. cc: Naga Moura MD
--- NOTE | 2019-04-15 16:03 | PROGRESS NOTE ---
DATE: 04/15/2019 SUBJECTIVE: Patient continues with difficulty swallowing and atypical chest symptoms. She remains in sinus rhythm. She is to have upper GI endoscopy this afternoon. OBJECTIVE: Vital Signs: Blood pressure 146/69, heart rate 79, oxygen saturation 97% on nasal cannula oxygen at 2 L/minute. Neck: There is no significant jugular venous distention. Chest: Clear to auscultation. Cardiac exam: Reveals a regular rate and rhythm without appreciable murmur or gallop. Extremities: Without edema. IMPRESSION: 1. Recent transient atrial tachyarrhythmias. Patient continues in sinus rhythm. 2. Atypical chest discomfort and difficulty swallowing. Given recent surgical repair of incarcerated paraesophageal hiatal hernia, I would suspect symptoms noncardiac, particularly in light of atypical nature. 3. Hypertension. 4. Hyperlipidemia. RECOMMENDATIONS: 1. Continue oral diltiazem. 2. Continue to further evaluate difficulty swallowing following recent paraesophageal hernia repair. 3. Continue to monitor on telemetry. cc: Neel Burns MD
[2019-04-15] MEDS ORDERED: DIPRIVAN 1% ONE (18:45)
--- NOTE | 2019-04-15 19:30 | ENDOSCOPY OPERATIVE NOTE ---
[facility] ENDOSCOPY OPERATIVE NOTE , PATIENT: Suzanne Brown ADMISSION DATE: 04/15/2019 [facility]#: [id number] [facility] 1940 [id number] EGD PROCEDURE REPORT PROCEDURE DATE: 04/15/2019 SURGEON: Catracho Thurman MD STATUS: inpatient NEGATIVE TURNER APPRENTICE: Anya Yang and Bolivar Mays PREOPERATIVE DIAGNOSIS: The patient is a 78 yr old female here for an EGD due to dysphagia, pharynge al-esophageal and dyspepsia. PROCEDURE PERFORMED: EGD, diagnostic MEDICATIONS: Per Anesthesia TOPICAL ANESTHETIC: none CONSENT: The patient understands the risks and benefits of the procedure and understands that these r isks include, but are not limited to: sedation, allergic reaction, infection, perforation and/or bleeding. Alternative means of evaluation and treatment include, among others: physical exam, x-rays, and/or surgical intervention. The patient elects to proceed with this endoscopic procedure. HISORY AND PHYSICAL: 04/15/2019 function. Hand hygiene and appropriate measures for infection prevention was taken. After the risks, benefits and alternatives of the procedure were thoroughly explained, Informed consent was verified, confirmed and timeout was successfully executed by the treatment team. The patient was anesthetized with topical anesthesia and the TP38-l07 ([id number]) endoscope was introduced through the mouth and advanced to the second portion of the duoden um. Retroflexion was performed in the stomach and revealed no abnormalities. The gastroscope was then slowly withdraw n and removed. ESOPHAGUS: Mild reflux esophagitis was found 39 cm from the incisors and at the gastroesophageal junc tion. Esophagitis was LA Class A: One or more mucosal breaks < 5 mm in maximal length. There was no evidence of Hiata l hernia, Chun's esophagus, webs rings or varices. The esophagus was otherwise normal. STOMACH: The mucosa of the stomach appeared normal. DUODENUM: The duodenal mucosa showed no abnormalities. SPECIMENS REMOVED: No ADVERSE EVENTS: There were no complications. POSTOPERATIVE DIAGNOSIS: 1. Reflux esophagitis 39 cm from the incisors and at the gastroesophage al junction 2. The esophagus was otherwise normal 3. The mucosa of the stomach appeared normal 4. The duodenal mucosa showed no abnormalities RECOMMENDATIONS: 1. Follow up with referring physician 2. Resume pre-procedure medications 3. Return to floor when standard parameters are met REPEAT EXAM: Catracho Thurman MD eSigned: Catracho Thurman MD 04/15/2019 7:29 PM cc: MD Lai Edwards MD PATIENT NAME: Suzanne Brown MR#: [id number]
[2019-04-15] MEDS: CLINIMIX E 4.25%-5% SOLUTION 1,000 ML IV SCH (22:51)
[2019-04-15] MEDS: COZAAR PO SCH (22:53)
[2019-04-15] MEDS: MAG-OX PO SCH (22:54)
[2019-04-15] MEDS: CRESTOR PO SCH (22:54)
[2019-04-16] MEDS: CARDIZEM PO SCH ×4 (03:39→21:06)
[2019-04-16] MEDS: LOVENOX SUBQ SCH (05:47)
[2019-04-16] MEDS: MAXIPIME 2 GM in NS 100 ML IV SCH ×3 (05:47→21:07)
[2019-04-16 06:03] LABS: BASO# 0.02 X1000 (0.0-0.2); BASO% 0.3 % (0.0-0.8); EOS% 1.4 % (0.0-10.0); HEMATOCRIT 31.7 % (37.0-47.0); HEMOGLOBIN 10.5 g/dL (12.0-16.0); LYMPH# 1.26 X1000 (1.2-3.4); LYMPH% 18.1 % (20.5-51.1); MCH 29.2 PG (27-31); MCHC 33.1 g/dL (33-37); MCV 88.1 FL (81-99); MONO# 0.96 X1000 (0.11-0.59); MONO% 13.8 % (1.7-9.3); MPV 11.3 FL (7.4-10.4); NEUT# 4.61 X1000 (1.4-6.5); NEUT% 66.4 % (42.2-75.2); PLT 248 X1000 (130-400); RDW 16.9 % (11.5-14.5); WBC 6.95 X1000 (4.8-10.8)
[2019-04-16] MEDS: SYNTHROID PO SCH (06:07)
[2019-04-16] MEDS: PRILOSEC PO SCH (06:07)
[2019-04-16 06:33] LABS: AGAP 14; BUN 18 mg/dL (8-22); CALCIUM 9.3 mg/dL (8.8-10.2); CHLORIDE 105 mmol/L (98-107); COSMO 273; CREATININE 0.7 mg/dL (0.5-0.9); ESTIMATED GFR > 60; GLUCOSE 116 mg/dL (70-104); MAGNESIUM 2.1 mg/dL (1.5-2.7); PHOSPHORUS 1.8 mg/dL (2.7-4.5); POTASSIUM 3.6 mmol/L (3.5-5.1); SODIUM 135 mmol/L (136-145); TCO2 16 mmol/L (25-35)
--- NOTE | 2019-04-16 06:39 | GENERAL SURGERY PROGRESS NOTE ---
DATE: 04/16/2019 SUBJECTIVE: Patient doing about the same. Still with some nausea. Discussed case with Dr. Thurman. EGD last night was essentially normal. He did not see any obvious complications from the fundoplication. The patient still has persistent nausea. OBJECTIVE: Vital Signs: Patient is currently afebrile. Her vital signs are stable. General: No acute distress. Cardiovascular: Regular rate and rhythm. Lungs: Grossly clear. Abdomen: Soft, nontender, nondistended. ASSESSMENT AND PLAN: A 78-year-old female with persistent nausea, vomiting, status post Toupet fundoplication and atrial fibrillation. 1. Nausea and vomiting. At this time upper GI series and EGD do not show any pathology, but she still has persistent nausea. I did discuss with Dr. Thurman about the possibility of low-dose Reglan and will defer to him as potentially starting it, but this may be what we ultimately have to do. She did have good gastric emptying during her upper GI, but she may have some degree of dysmotility secondary to her long-standing hiatal hernia. Regardless, will keep a close eye on her, keep her resuscitated. She is on Clinimix right now. 2. Atrial fibrillation. At this time, she seems to be stabilizing. Will defer to Cardiology. cc: Rudy Acosta MD
[2019-04-16] MEDS: ZOFRAN IV PRN ×3 (08:41→21:06)
[2019-04-16] MEDS: MAG-OX PO SCH (08:50)
[2019-04-16] MEDS: COZAAR PO SCH (08:50)
[2019-04-16] MEDS ORDERED: SODIUM PHOSPHATE 30 MMOL in NS 250 ML IV ONE (08:55)
[2019-04-16] MEDS ORDERED: XANAX PO ONE ×2 (09:25→19:23)
--- NOTE | 2019-04-16 10:15 | PROGRESS NOTE ---
DATE: 04/16/2019 SUBJECTIVE: This patient is complaining of nausea and vomiting. As per the patient and the nurse, she is not tolerating p.o. either, and she has been having problems swallowing her pills. I had a lengthy conversation with the patient and the family member, at the bedside. I want this patient to get up and move around. They are asking for a medication for anxiety, and I will give her a little dose of Xanax to see how she does today, around 0.125. She had an endoscopic exam yesterday that showed esophagitis. She has chronic LFT elevation. Surgery on board, as well as Gastroenterology Department. She had atrial fibrillation, but converted to sinus rhythm. She has been placed on Cardizem. Cardiology on board. Probably, she meets criteria for anticoagulation. I will let Cardiology Department evaluate that. OBJECTIVE: Vital Signs: Temperature 98.5 degrees, pulse 80, respiratory rate 14, blood pressure 148/70, oxygen saturation 100% on room air. HEENT: Head normocephalic. No trauma. PERRLA. Neck: Supple. No JVD. No masses. Central trachea. Chest: Clear to auscultation. No wheezing. No rales. Abdomen: Soft, protuberant, nontender, nondistended. No hepatosplenomegaly. Extremities: No edema, no clubbing, no cyanosis. Neurological: This patient is alert. She is oriented x3. No focal neurological deficits. She seems to be anxious. LABORATORY DATA: WBC 6.9, hemoglobin 10.5, hematocrit 31.7, platelets 248,000. Sodium 135, potassium 3.6, chloride 105, bicarbonate 16, BUN 18, creatinine 0.7, glucose 116. Phosphorus 1.8, magnesium 2.1. ASSESSMENT AND PLAN: 1. Atrial fibrillation, now sinus rhythm. Continue with Cardizem. Probably, she meets criteria for anticoagulation. I will let Cardiology Department evaluate on that. 2. Dysphagia, nausea, and vomiting. She had a fundoplication done by Dr. Acosta recently, and it looks like she is still having some symptoms. We did an endoscopic exam that showed esophagitis, but nothing else. She has been placed on proton pump inhibitors and a liquid diet, but she is still having nausea. We will try to move this patient around. She needs to eat sitting up, and then stay upright for at least 2 hours. 3. Moderate protein calorie malnutrition. Continue with Clinimix and a full liquid diet. We will advance as tolerated. 4. Left lower lobe pneumonia. She has been placed on cefepime. Likely, will stop the treatment tomorrow since she had 5 days of treatment, and I will get a new x-ray. 5. Generalized weakness and physical deconditioning. I have requested physical therapy and occupational therapy. 6. Anxiety. She will receive a low dose of Xanax x1, and I will monitor. 7. Hypophosphatemia. I will replace it. 8. Elevated liver function tests. This is chronic. Gastroenterology on board. Negative for PE and lower extremity thrombosis. cc: Cliff Greene MD MTDD
[2019-04-16] MEDS: CLINIMIX E 4.25%-5% SOLUTION 1,000 ML IV SCH ×2 (17:55→20:21)
--- NOTE | 2019-04-16 18:45 | PROGRESS NOTE ---
DATE: 04/16/2019 SUBJECTIVE: Patient continues without shortness of breath on room air. She does continue to have some problems with difficulty swallowing as well as some atypical chest discomfort. However, she feels like she is improved today and has been able to eat small amounts of liquid diet. OBJECTIVE: Vital Signs: Blood pressure 173/77, heart rate 82, oxygen saturation 100%. Neck: There is no significant jugular venous distention. Chest: Clear to auscultation. Cardiac: Regular rate and rhythm without appreciable murmur or gallop. There is no evidence of peripheral edema. LABORATORY DATA: Includes a white blood cell count of 6.95, hematocrit 31.7, hemoglobin 10.5, and platelet count 248,000. Sodium is 135, potassium 3.6, chloride 105, carbon dioxide 16, BUN 18, creatinine 0.7, glucose 116. IMPRESSION: 1. Recent transient atrial tachyarrhythmias in the setting of probable intravascular volume depletion, related to diminished oral intake following recent surgery for paraesophageal hernia. Patient has continued in sinus rhythm over the last 48 hours. 2. Atypical chest discomfort and difficulty swallowing. Suspect this is more likely related to upper gastrointestinal source and not cardiac. 3. Hypertension. 4. Hyperlipidemia. RECOMMENDATIONS: 1. Continue oral diltiazem. It is reasonable to switch her to long-acting preparation. 2. Her atrial fibrillation has been very limited and is probably secondary to intravascular volume depletion and stress of noncardiac illness. Long-term anticoagulation does not appear to be warranted unless she has significant further recurrence of atrial fibrillation following improvement in her volume status. cc: Neel Burns MD
[2019-04-16] MEDS: CRESTOR PO SCH (21:06)
[2019-04-17] MEDS: CARDIZEM PO SCH (02:58)
[2019-04-17] MEDS: ZOFRAN IV PRN ×3 (03:22→20:18)
[2019-04-17] MEDS: LOVENOX SUBQ SCH (05:14)
[2019-04-17] MEDS: SYNTHROID PO SCH ×2 (05:14→06:04)
[2019-04-17] MEDS: PRILOSEC PO SCH ×2 (05:14→06:04)
[2019-04-17] MEDS: MAXIPIME 2 GM in NS 100 ML IV SCH ×3 (05:15→21:57)
[2019-04-17 06:00] LABS: AGAP 11; ALBUMIN 2.8 g/dL (3.5-5.0); ALKALINE PHOSPHATASE 365 U/L (32-104); BUN 17 mg/dL (8-22); CALCIUM 9.7 mg/dL (8.8-10.2); CHLORIDE 105 mmol/L (98-107); COSMO 277; CREATININE 0.6 mg/dL (0.5-0.9); ESTIMATED GFR > 60; GLUCOSE 129 mg/dL (70-104); GOT 41 U/L (10-30); GPT 45 U/L (10-36); POTASSIUM 3.3 mmol/L (3.5-5.1); SODIUM 137 mmol/L (136-145); TCO2 21 mmol/L (25-35); TOTAL BILIRUBIN 0.43 mg/dL (0.20-1.00); TOTAL PROTEIN 5.7 g/dL (6.3-8.3)
--- NOTE | 2019-04-17 06:11 | GENERAL SURGERY PROGRESS NOTE ---
DATE: 04/17/2019 SUBJECTIVE: Patient doing about the same. Still with some nausea, though she had some improvement with some Xanax. OBJECTIVE: Vital Signs: Patient is currently afebrile. Her vital signs are stable. General: No acute distress. Cardiovascular: Regular rate and rhythm. Lungs: Grossly clear. Abdomen: Soft, nontender, nondistended. ASSESSMENT AND PLAN: A 78-year-old female with persistent nausea, vomiting, status post Toupet fundoplication. Nausea vomiting. At this time, full workup has been negative. She did have some improvement with Xanax, so might be something to consider around the clock for her, so I would like to hold off on giving her Reglan given the side-effect protocol, but may need to consider this also. Otherwise, continue current treatment. My partners will follow over the weekend. cc: Rudy Acosta MD
[2019-04-17] MEDS ORDERED: KLOR-CON PO ONE (07:31)
--- NOTE | 2019-04-17 08:51 | PROGRESS NOTE ---
DATE: 04/17/2019 SUBJECTIVE: This patient just had an episode of vomiting around 30 minutes ago. She believes probably this is related to some kind of sinus congestion. I will start her on normal saline spray and also Nasonex to see how she does. I talked to the patient and the family member about being more active and avoid to spend too much time in bed. I gave her a couple doses of Xanax yesterday to help her anxiety and it looks like it worked really well. She has been tolerating a little bit more of her diet, but still she is having some episodes of nausea and vomiting, but better compared with yesterday. I will transfer this patient to the medical floor. I will also decrease the Clinimix. Physical therapy and occupational therapy on board. OBJECTIVE: Vital Signs: Temperature 98.6 degrees, pulse 75, respiratory rate 20, blood pressure 157/75, oxygen saturation 92 on room air. HEENT: Head normocephalic, no trauma. PERRLA. Neck: Supple. No JVD. No masses. Central trachea. Chest: Clear to auscultation. No wheezing. No rales. Abdomen: Soft, protuberant, nontender, nondistended. No hepatosplenomegaly. Extremities: No edema, no clubbing, no cyanosis. Neurological examination: This patient is alert. She is oriented. No focal deficit, but she seems to be anxious, but better compared with yesterday. Generalized weakness. LABORATORY: Sodium 137, potassium 3.3, chloride 105, bicarbonate 21. BUN 17, creatinine 0.6, glucose 129. AST 41, ALT 45 alkaline phosphatase 365, albumin 2.8. ASSESSMENT AND PLAN: 1. Atrial fibrillation, now sinus rhythm. Cardiology Department on board. I have switched the Cardizem every 6 hours to daily, 120 mg. She is not on anticoagulation. 2. Dysphagia, nausea, vomiting. She seems to be doing a little bit better compared with yesterday. She has been tolerating some bites. She believes this could be also related to a sinus congestion, and I will start treating this. She had an esophagogastroduodenoscopy done that showed esophagitis, but nothing else. Continue with proton pump inhibitors. Continue with liquid diet. I will decrease the rate of the Clinimix. She needs to eat, sit-up and stay upright for at least 2 hours, and more physical activity again. 3. Moderate protein calorie malnutrition. Continue with Clinimix and full liquid diet. We will advance the diet as tolerated. 4. Left lower lobe pneumonia. Continue with the same management, pending x-ray. 5. Generalized weakness and physical deconditioning. I have requested physical therapy and occupational therapy. 6. Hypophosphatemia has been replaced. 7. Elevated liver function tests. This is chronic, getting better. Gastroenterology on board. 8. Elevated D-dimer. She has a negative lower extremity ultrasound, and also angiogram of the chest for pulmonary embolus. 9. Anxiety. Continue with low dose of Xanax. cc: Cliff Greene MD
[2019-04-17] MEDS: MAG-OX PO SCH ×2 (08:52→09:22)
[2019-04-17] MEDS: COZAAR PO SCH ×2 (08:52→09:21)
[2019-04-17] MEDS: CLINIMIX E 4.25%-5% SOLUTION 1,000 ML IV SCH (08:53)
[2019-04-17] MEDS: AYR NASAL SPRAY NAS SCH ×4 (08:53→20:19)
[2019-04-17] MEDS: XANAX PO SCH ×2 (08:53→20:18)
[2019-04-17] MEDS: CARDIZEM CD PO SCH ×2 (08:53→12:56)
[2019-04-17] MEDS: NASONEX NASAL SPRAY NAS SCH (08:54)
[2019-04-17] MEDS ORDERED: XANAX PO SCH (09:00)
--- NOTE | 2019-04-17 09:03 | Diag Imaging Result Doc PS360 ---
EXAM: CHEST-PORTABLE 04/17/2019 HISTORY: dyspnea TECHNIQUE: AP portable at 0847 COMMENT: There are bilateral pleural effusions which have increased in volume since 04/12/2019. There is cardiomegaly. There is bibasilar atelectasis. IMPRESSION: Worsening pleural effusions and atelectasis. Electronically signed by Francesco Cortez 04/17/2019 8:59 AM
[2019-04-17] MEDS ORDERED: POTASSIUM PHOSPHATE 40 MEQ in NS 250 ML IV ONE (09:22)
[2019-04-17] MEDS ORDERED: LASIX IV ONE (10:16)
--- NOTE | 2019-04-17 13:41 | GASTROENTEROLOGY PROGRESS NOTE ---
DATE: 04/17/2019 SUBJECTIVE: The patient has still had episodes of nausea and vomiting. She was given Xanax with some improvement. Nurse reports she was not able to hold down some of her medications this morning. She had an EGD on 04/15/2019 that showed mild reflux esophagitis, otherwise normal stomach. No issues noted with recent Nevin fundoplication. OBJECTIVE: Vital signs: Temperature 98.4, pulse 79, respirations 25, blood pressure 137/70. General: The patient is awake and alert. She is complaining of some nausea and episodes of vomiting. LABORATORY: Hematology: WBC 6.95, hemoglobin 10.5, hematocrit 31.7, MCV 88.1, platelet 248. Chemistry: Sodium 137, potassium 3.3, chloride 105, CO2 21, BUN 17, creatinine 0.6, glucose 129. ASSESSMENT AND PLAN: 1. Esophagitis. 2. Recent Nevin fundoplication. 3. Nausea and vomiting. 4. Elevated liver function tests have improved. Will continue to follow. Continue PPI. I have discussed following strict antireflux measures. Further plans will be made according to her progress. I have discussed this case with Dr. Thurman. Dictated by LIANG Coyle for Catracho Thurman MD cc: LIANG Samuel MD
[2019-04-17] MEDS: CRESTOR PO SCH (20:18)
[2019-04-18] MEDS: AYR NASAL SPRAY NAS SCH ×3 (00:04→10:35)
[2019-04-18] MEDS: SYNTHROID PO SCH (06:48)
[2019-04-18] MEDS: LOVENOX SUBQ SCH (06:48)
[2019-04-18] MEDS: MAXIPIME 2 GM in NS 100 ML IV SCH (06:48)
[2019-04-18] MEDS: PRILOSEC PO SCH (06:48)
[2019-04-18] MEDS: CLINIMIX E 4.25%-5% SOLUTION 1,000 ML IV SCH (06:48)
[2019-04-18 07:21] LABS: BASO# 0.03 X1000 (0.0-0.2); BASO% 0.4 % (0.0-0.8); EOS# 0.11 X1000 (0.0-0.7); EOS% 1.5 % (0.0-10.0); HEMATOCRIT 33.9 % (37.0-47.0); HEMOGLOBIN 11.6 g/dL (12.0-16.0); IMM GRAN# 0.02 X1000 (0.0-0.04); IMM GRAN% 0.3 % (0.0-0.5); LYMPH# 1.62 X1000 (1.2-3.4); LYMPH% 21.5 % (20.5-51.1); MCH 29.6 PG (27-31); MCHC 34.2 g/dL (33-37); MCV 86.5 FL (81-99); MONO# 1.03 X1000 (0.11-0.59); MONO% 13.7 % (1.7-9.3); MPV 10.7 FL (7.4-10.4); NEUT# 4.72 X1000 (1.4-6.5); NEUT% 62.6 % (42.2-75.2); PLT 321 X1000 (130-400); RBC 3.92 XMIL (4.2-5.4); RDW 16.2 % (11.5-14.5); WBC 7.53 X1000 (4.8-10.8)
[2019-04-18 07:36] LABS: AGAP 13; ALB/GLOB RATIO 0.9; ALBUMIN 2.9 g/dL (3.5-5.0); ALKALINE PHOSPHATASE 371 U/L (32-104); BUN 19 mg/dL (8-22); CALCIUM 9.9 mg/dL (8.8-10.2); CHLORIDE 102 mmol/L (98-107); COSMO 277; CREATININE 0.8 mg/dL (0.5-0.9); ESTIMATED GFR > 60; GLUCOSE 117 mg/dL (70-104); GOT 31 U/L (10-30); GPT 36 U/L (10-36); POTASSIUM 3.7 mmol/L (3.5-5.1); SODIUM 137 mmol/L (136-145); TCO2 22 mmol/L (25-35); TOTAL BILIRUBIN 0.41 mg/dL (0.20-1.00)
--- NOTE | 2019-04-18 10:04 | Diag Imaging Result Doc PS360 ---
EXAM: CHEST-PORTABLE 04/18/2019 HISTORY: dyspnea TECHNIQUE: AP portable at 0929 COMMENT: Compared to 04/17/2019 the pleural effusions have improved. There is still atelectasis or pneumonia in the left lower lobe and lingula. IMPRESSION: Improved pleural effusions. Electronically signed by Francesco Cortez 04/18/2019 10:02 AM
[2019-04-18] MEDS: XANAX PO SCH (10:47)
[2019-04-18] MEDS: CARDIZEM CD PO SCH (10:47)
[2019-04-18] MEDS: NASONEX NASAL SPRAY NAS SCH (10:48)
[2019-04-18] MEDS: MAG-OX PO SCH (10:48)
[2019-04-18] MEDS: COZAAR PO SCH (10:49)
[2019-04-18 11:53] VITALS: BP 134/71
--- NOTE | 2019-04-18 15:24 | GENERAL SURGERY PROGRESS NOTE ---
DATE: 04/18/2019 Ms. Brown was admitted with nausea and vomiting. She is apparently doing better with her current regimen including omeprazole and anti nausea medication. Her wounds were fine as she is postop hiatal hernia repair. She is to contact Dr. Acosta about any followup. cc: Otf Hinkle MD
--- NOTE | 2019-04-18 20:58 | DISCHARGE SUMMARY ---
ADMISSION DATE: 04/12/2019 DISCHARGE DATE: 04/18/2019 DIAGNOSES: 1. Chest pain. 2. Dysphagia, nausea, vomiting. 3. Moderate protein calorie malnutrition. 4. Atrial fibrillation, now in sinus rhythm. 5. Left lower lobe pneumonia. 6. General weakness and physical deconditioning. 7. Hypophosphatemia, resolved. 8. Elevated D-dimer with a negative lower extremity Doppler as well as CTA pulmonary. 9. 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 10. Hypothyroid. CONSULT: 1. Dr. Thurman, Gastroenterology. 2. Dr. Gianni Acosta. 3. Dr. Neel Burns. DIAGNOSTICS: 1. 04/12/2019 chest x-ray revealed emphysema and cardiomegaly. 2. CTA pulmonary revealed no pulmonary emboli, small pericardial and pleural effusions with pulmonary edema, bibasilar atelectasis. 3. Echocardiogram revealed an EF of 60% with normal wall motion. Normal LV systolic function. There appears to be a small pericardial effusion with no evidence of tamponade physiology, 4. Bilateral lower extremity Doppler revealed no deeper superficial venous thrombosis seen in bilateral lower extremities. 5. Abdominal ultrasound revealed suggestion of mild hepatic steatosis. 6. Upper GI barium swallow. No evidence of obstruction or reflux. Mild cricopharyngeal achalasia and presbyesophagus. 7. Chest x-ray 04/18/2019 revealed improved pleural effusions. PROCEDURES: 04/15/2019, endoscopy reveals reflux esophagitis. Esophagus was otherwise normal. Mucosa of the stomach appeared normal. Duodenal mucosa showed no abnormalities. MICROBIOLOGY: Blood cultures 04/12/2019 right antecubital revealed no growth and left antecubital revealed coag-negative staphylococci that was consistent with contamination. HOSPITAL COURSE: Ms. Brown presented to the emergency room with chest pain, shortness of breath. She was found to have left lower lobe pneumonia on CTA pulmonary for which she was covered with antibiotics. She was 3 weeks post laparoscopic-assisted repair of incarcerated paraesophageal hernia with posterior fundoplication and gastropexy. We did consult General Surgery, who ordered an upper GI to see the mechanics of her swallowing, which was essentially normal. She did have persistent nausea. She underwent EGD which revealed reflux esophagitis. She was placed on PPI with instructions to eat sitting up and stay upright for at least 2 hours after meals. This was discussed on multiple occasions with the patient as well as her family members. She was given Xanax and her nausea did seem to improve. She had an episode of atrial fibrillation with rapid ventricular response. She was moved to CICU and placed on a Cardizem drip. She did convert back to a sinus rhythm and she was controlled with Cardizem CD. She received Clinimix as diet was advanced. She would drink chocolate Boost with full liquids, while being hesitant to eat solids She carries a history of chronic elevated liver function tests for which Dr. Otto was consulted. DISCHARGE VITAL SIGNS: Blood pressure is 134/71, rate of 81, respirations 18, temperature 98.2 degrees with room air saturations 100%. DISCHARGE PHYSICAL EXAMINATION: Cardiovascular: Regular rate and rhythm. S1, S2 appreciated. Pulmonary: Breath sounds are clear with no increased work of breathing noted. Gastrointestinal: Abdomen is soft, nontender, nondistended with bowel sounds in all 4 quadrants. Neurologic: She is alert and oriented x3. Skin: Warm and dry. DISCHARGE MEDICATIONS: 1. Xanax 0.125, one p.o. b.i.d. 2. Levothyroxine 100 mcg p.o. daily. 3. Nasonex spray 1 spray in each nostril daily. 4. Cardizem CD 120 mg p.o. daily. 5. 10 mg p.o. at bedtime. 6. Magnesium 250 p.o. daily. 7. Losartan 50 mg p.o. daily. 8. Lansoprazole 30 mg p.o. daily. FOLLOWUP: 1. Dr. Rudy Acosta as instructed. 2. Dr. Thurman She needs to call to schedule an appointment in the next 1-[address] Lai Mishra. She is to call Saturday to schedule an appointment in the next week. She has been instructed to call to be seen sooner or return to the ER for any syncope, dizziness, chest pain, palpitations, recurrence of difficulty swallowing, nausea, vomiting, diarrhea, constipation, black or bloody vomitus or stools, temperature greater than 101, any hematuria, dysuria, frequency, urgency or for any questions or concerns that she may have. She is being discharged home in stable condition with her . TIME SPENT: This is a greater than 30 minute discharge. Dictated by LIANG Cooper for Cliff Greene MD cc: LIANG Cooper MD Micah A. Howard, MD [facility]
== END 2019-04-18 12:26 | disposition home or self-care (01) | DRG 313 ==
LOC: ED 11:02 → SUATTDRO 16:17 → 4N 16:17 → 3S 04-14 07:39 → 3N 04-17 13:16
PROVIDERS: ATTEND Internal Medicine